=== PATIENT | female | born 1965 | race Asian ===

== ENCOUNTER → 2022-02-20 08:13 | Outpatient (BNVA) | payer OTHER, SELFPAY | PROVIDERS: PCP Family Medicine; Visit Provider Nurse Practitioner Family | DX: G47.00 Insomnia, unspecified (principal); R40.0 Somnolence; R06.83 Snoring | CPT/HCPCS: 99202 ==

== ENCOUNTER → 2022-04-02 15:03 | Outpatient (REF) | payer OTHER, SELFPAY | LOC: HO.SL 15:03 | PROVIDERS: Visit Provider Nurse Practitioner Family | DX: R40.0 Somnolence (principal); R06.83 Snoring | CPT/HCPCS: 95806 ==

== ENCOUNTER → 2022-05-08 10:43 | Outpatient (BNVA) | payer OTHER, SELFPAY | PROVIDERS: PCP Family Medicine; Visit Provider Nurse Practitioner Family | DX: G47.00 Insomnia, unspecified (principal); G57.93 Unspecified mononeuropathy of bilateral lower limbs; Z79.899 Other long term (current) drug therapy | CPT/HCPCS: 99212 ==

== ENCOUNTER → 2022-07-16 11:23 | Outpatient (BNVA) | payer OTHER, SELFPAY | PROVIDERS: PCP Family Medicine; Visit Provider Nurse Practitioner Family | DX: G47.00 Insomnia, unspecified (principal); G57.93 Unspecified mononeuropathy of bilateral lower limbs; R29.2 Abnormal reflex; R32 Unspecified urinary incontinence; M54.9 Dorsalgia, unspecified; Z79.899 Other long term (current) drug therapy | CPT/HCPCS: 99212 ==

== ENCOUNTER 2022-08-07 13:40 | Outpatient (REF) | payer OTHER, SELFPAY ==
--- NOTE | ~2022-08-07 | MR_ITS ---
EXAMINATION: MR LUMBAR SPINE WITHOUT CONTRAST CLINICAL INFORMATION: Unspecified mononeuropathy of bilateral lower limbs. COMPARISON: None TECHNIQUE: MRI of the lumbar spine was obtained using routine sequences without contrast. FINDINGS: There is grade 1 retrolisthesis of L3 on L4 with alignment otherwise preserved. The vertebral body heights are preserved. There is moderate disc height loss at L1-L2, L2-L3, and L3-L4. Edematous endplate changes are noted at L3-L4 and to lesser extent L4-L5. The distal spinal cord appears normal. The conus medullaris terminates normally at the L1-L2 level. A small filar lipoma is noted. The extraspinal soft tissues are within normal limits. SPINAL LEVELS: L1-L2: Shallow left subarticular protrusion. No spinal canal or neural foraminal stenosis. L2-L3: Mild disc bulging. No spinal canal or neural foraminal stenosis. L3-L4: Shallow left subarticular protrusion with moderate facet arthropathy. Mild spinal canal stenosis and left subarticular stenosis. Left foraminal protrusion resulting in severe left neural foraminal stenosis. Mild to moderate right neural foraminal stenosis. L4-L5: Disc bulging with moderate facet arthropathy. Right foraminal protrusion resulting in moderate to severe right neural foraminal stenosis. No spinal canal stenosis. L5-S1: Disc bulging with moderate facet arthropathy. No spinal canal or neural foraminal stenosis. MR/MR lumbar spine wo con IMPRESSION: 1. Multilevel degenerative spondylosis without significant narrowing of the spinal canal. 2. At L3-L4 there is left foraminal protrusion resulting in severe left neural foraminal stenosis. Mild to moderate right neural foraminal stenosis. 3. At L4-L5 there is right foraminal protrusion resulting in moderate to severe right neural foraminal stenosis.
== END 2022-08-07 13:41 | disposition home or self-care (01) ==
LOC: HO.MRI 13:40
PROVIDERS: PCP Family Medicine; Visit Provider Nurse Practitioner Family
DX: G57.93 Unspecified mononeuropathy of bilateral lower limbs (principal); M54.9 Dorsalgia, unspecified; R32 Unspecified urinary incontinence; R29.2 Abnormal reflex
CPT/HCPCS: 72148

== ENCOUNTER 2023-08-18 09:58 | Outpatient (AMB) | payer OTHER, SELFPAY ==
--- NOTE | 2023-08-18 10:12 | MHC.OFFVIS ---
Intake Vital Signs 08/18/23 10:20 Height 5 ft 1 in Weight 144 lb 6 oz BMI 27.3 BP 124/70 Blood Pressure Location Lt brachial Position Sitting Pulse 58 Pulse Source Pulse Oximeter Pulse Oximetry (%) 97 Oxygen Delivery Method Room Air Intake Visit Reasons: Follow up - CONF w/address Intake Note: Patient presents for f/u. wants to refill Gabapentin 100mg and Gabapentin 300mg. Allergies No Known Allergies Allergy (Verified 08/18/23 10:19) HPI HPI Comments History of Present Illness Details 57 y/o female patient presents for follow up of insomnia. Pt's daughter helps for [place] interpretation. Pt reports that she sleeps better with gabapentin 400 mg, trazodone 100-125 mg. She also taking magnesium glycinate 240 mg and it helps her sleep throughout the night. Pt can sleep 6-7 hours well. She does daily gentle exercise and practice sleep hygiene. Bilateral legs tingling, feet and knee pain usually disrupt her sleep. She uses heating pad for knee pain, and back pain, having cortisone shot, doing physical therapy, and they are helpful. Pt reports back pain and left shoulder pain also has improved. Lumbar spine MRI result reviewed. IMPRESSION: 1. Multilevel degenerative spondylosis without significant narrowing of the spinal canal. 2. At L3-L4 there is left foraminal protrusion resulting in severe left neural foraminal stenosis. Mild to moderate right neural foraminal stenosis. 3. At L4-L5 there is right foraminal protrusion resulting in moderate to severe right neural foraminal stenosis. [facility] Surgical History History of removal of tunneled central venous catheter (CVC) with port Family History Family/Other Alzheimer disease Social History Alcohol intake: never Patient Tobacco Use Status: Former Tobacco user Review of Systems Const All systems reviewed & are unremarkable except as noted in HPI and below ENT Reports Normal hearing present Neuro Reports Normal hearing present Physical Exam Vital Signs: Last Vital Signs Pulse 58 08/18/23 10:20 BP 124/70 08/18/23 10:20 Pulse Ox 97 08/18/23 10:20 Oxygen Delivery Method Room Air 08/18/23 10:20 BMI result Body Mass Index 27.3 Const General: cooperative Nutritional Appearance: average body habitus Orientation/consciousness: patient oriented x3 Limitations: language barrier (Af[place] speaking only) Neck Neck: Yes full ROM and Yes supple Resp Effort & Inspection: normal respiratory effort and able to speak in complete sentences Neuro General: patient oriented x3 and gait normal Cranial nerves: Yes Bilaterally intact EOM present, Yes Normal facial strength present, Yes Midline tongue present, Yes Normal hearing present, Yes Ability to bilaterally rotate head present and Yes Ability to bilaterally elevate shoulders present Cognition (Neuro): normal cognition Gait exam (Neuro): Normal gait present Motor exam (neuro): 5/5 motor strength present throughout Deep tendon reflexes (DTR's): Right patellar reflex intensity grade: 3+ and Left patellar reflex intensity grade: 3+ Psych Appearance: grossly normal Mental Status: mental status grossly normal Speech and movement: Normal speech and movement present Affect: normal affect Attitude: cooperative Assessment & Plan Assessment & Plan (1) Insomnia: Code(s): G47.00 - Insomnia, unspecified (2) Neuropathy involving both lower extremities: Code(s): G57.93 - Unspecified mononeuropathy of bilateral lower limbs (3) Abnormal reflexes of lower extremity: Code(s): R29.2 - Abnormal reflex (4) Back pain: Code(s): M54.9 - Dorsalgia, unspecified Plan Advised patient to continue to gabapentin to 400 mg, trazodone 100-125 mg with magneisum glycinate. Continue to practice good sleep hygiene and daily exercise. Continue to do physical threrapy for back pain. Pt to call with any worsening concerns or questions. Medications: Refilled gabapentin 300 mg PO BEDTIME 90 days 90 caps 2RF gabapentin 100 mg PO BEDTIME 90 days 90 caps 2RF Coding Level of Care Code Est Pt Level 4 (08998) Diagnoses Insomnia G47.00 Neuropathy involving both lower extremities G57.93 Abnormal reflexes of lower extremity R29.2 Back pain M54.9
[2023-08-18 10:20] VITALS: BP 124/70; PULSE 58; O2SAT 97; BMI 27.3
== END 2023-08-18 10:39 | disposition home or self-care (01) ==
PROVIDERS: PCP Family Medicine; Visit Provider Nurse Practitioner Family
DX: G47.00 Insomnia, unspecified (principal); G57.93 Unspecified mononeuropathy of bilateral lower limbs; R29.2 Abnormal reflex; M54.9 Dorsalgia, unspecified
CPT/HCPCS: 99214

== ENCOUNTER → 2023-08-18 09:58 | Outpatient (BNVA) | payer OTHER, SELFPAY | PROVIDERS: PCP Family Medicine; Visit Provider Nurse Practitioner Family | DX: G47.00 Insomnia, unspecified (principal); G57.93 Unspecified mononeuropathy of bilateral lower limbs; R29.2 Abnormal reflex; M54.9 Dorsalgia, unspecified | CPT/HCPCS: 99212 ==

== ENCOUNTER 2024-08-02 11:38 | Outpatient (AMB) | payer MEDICAID, SELFPAY ==
--- NOTE | 2024-08-02 11:40 | A.OFFVIS_ITS ---
Vital Signs 08/02/24 11:41 Height 5 ft 1 in Weight 145 lb BMI 27.4 BP 120/68 Blood Pressure Location Rt brachial Position Sitting Pulse 72 Pulse Source Pulse Oximeter Pulse Oximetry (%) 97 Oxygen Delivery Method Room Air Intake Visit Reasons: Follow up Intake Note: Patient following up on Insomnia and Neuropathy involving both lower extremities Allergies No Known Allergies Allergy (Verified 08/02/24 11:43) HPI Comments Details: 58 y/o female patient presents for follow up of insomnia. Patient's daughter interprets in [place]. HST completed in Apr 2022, AHI was <1 and she did not have sleep apnea. MRI Jul 2022 Lumbar Spondolysis, reviewed with patient. Pt reports that she sleeps better with gabapentin 400 mg, and trazodone 150mg po daily at night. She goes to bed midnight and wakes up at 7am with 2-3 bathroom breaks a night. She sleeps 6-7 hours with medication. She does daily gentle exercise and practice sleep hygiene. She has continued bilateral tingling, numbness in the feet and R. knee pain which usually disrupt her sleep. She uses heating pad for knee pain, and back pain, cortisone shots, and doing physical therapy are helpful. She is just had an arthrocentesis of the R. knee and 5ml of yellow tinged fluid was aspirated, which provided some relief, at [facility]. She has incontinence and declines Pelvic floor exercises, continues to take Vibegron 75mg po daily and this helps. [facility] Surgical History History of removal of tunneled central venous catheter (CVC) with port Family History Family/Other Alzheimer disease Social History Alcohol intake: never Patient Tobacco Use Status: Former Tobacco user Review of Systems Const All systems reviewed & are unremarkable except as noted in HPI and below ENT Reports Normal hearing present Neuro Reports Normal hearing present Physical Exam Vital Signs: Last Vital Signs Pulse 72 08/02/24 11:41 BP 120/68 08/02/24 11:41 Pulse Ox 97 08/02/24 11:41 Oxygen Delivery Method Room Air 08/02/24 11:41 BMI result Body Mass Index 27.4 Const General: cooperative Nutritional Appearance: average body habitus Orientation/consciousness: patient oriented x3 Limitations: language barrier ([place] speaking only) Neck Neck: Yes full ROM and Yes supple Resp Effort & Inspection: normal respiratory effort and able to speak in complete sentences Neuro General: patient oriented x3 and gait normal Cranial nerves: Yes Bilaterally intact EOM present, Yes Normal facial strength present, Yes Midline tongue present, Yes Normal hearing present, Yes Ability to bilaterally rotate head present and Yes Ability to bilaterally elevate shoulders present Cognition (Neuro): normal cognition Gait exam (Neuro): Normal gait present Motor exam (neuro): 5/5 motor strength present throughout Deep tendon reflexes (DTR's): Right patellar reflex intensity grade: 3+ and Left patellar reflex intensity grade: 3+ Psych Appearance: grossly normal Mental Status: mental status grossly normal Speech and movement: Normal speech and movement present Affect: normal affect Attitude: cooperative Results Reviewed Results Reviewed: HST completed in Apr 2022, AHI was <1 and she did not have sleep apnea. MRI Jul 2022 Lumbar Spondolysis IMPRESSION: 1. Multilevel degenerative spondylosis without significant narrowing of the spinal canal. 2. At L3-L4 there is left foraminal protrusion resulting in severe left neural foraminal stenosis. Mild to moderate right neural foraminal stenosis. 3. At L4-L5 there is right foraminal protrusion resulting in moderate to severe right neural foraminal stenosis. 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: Code(s): M47.27 - Other spondylosis with radiculopathy, lumbosacral region Category: Medical (2) Insomnia: Code(s): G47.00 - Insomnia, unspecified Category: Medical Qualifiers: Insomnia type: due to medical condition Qualified Code(s): G47.01 - Insomnia due to medical condition (3) Neuropathy involving both lower extremities: Code(s): G57.93 - Unspecified mononeuropathy of bilateral lower limbs Category: Medical (4) Abnormal reflexes of lower extremity: Code(s): R29.2 - Abnormal reflex Category: Medical (5) Back pain: Code(s): M54.9 - Dorsalgia, unspecified Category: Medical Qualifiers: Back pain laterality: bilateral Back pain location: low back pain Chronicity: chronic Sciatica presence: unspecified whether sciatica present Qualified Code(s): M54.50 - Low back pain, unspecified; G89.29 - Other chronic pain Plan Will refer to pain management for Corticosteroid / Hyaluronic injections as needed, spondylosis. Continue to take gabapentin to 400 mg po at bedtime for lumbar radiculopathy. Continue to take Trazadone 150mg po at bedtime for insomnia. Continue to take Magnesium Oxide 400mg po at bedtime for low back pain. F/U in 3 months Pt to call with any worsening concerns or questions. Orders: Referrals Pain Management Referral M47.27 - Other spondylosis with radiculopathy, lumbosacral region Medications: New magnesium oxide Take one 200mg tablet by mouth at bedtime daily. 400 mg PO DAILY 90 tabs 3RF Insomnia 90 days MDD 400mg G47.9 - Sleep disorder, unspecified, R53.83 - Other fatigue Changed From gabapentin 100 mg PO BEDTIME 90 days 90 caps 2RF G57.93 - Unspecified mononeuropathy of bilateral lower limbs To gabapentin Take one capsule by mouth at bedtime daily. 100 mg PO BEDTIME 90 caps 3RF Neuropathy 90 days MDD 100mg G57.93 - Unspecified mononeuropathy of bilateral lower limbs Refilled gabapentin 300 mg PO BEDTIME 90 caps 2RF Neuropathy 90 days MDD 300mg G57.93 - Unspecified mononeuropathy of bilateral lower limbs Patient Instructions: Sleep Hygiene provided, f/u with pain management. Coding Level of Care Code Est Pt Level 4 (23528) Diagnoses Spondylosis of lumbosacral spine at 2 levels with radiculopathy M47.27 Insomnia due to medical condition G47.01 Insomnia type: due to medical condition Neuropathy involving both lower extremities G57.93 Abnormal reflexes of lower extremity R29.2 Chronic bilateral low back pain, unspecified whether sciatica present M54.50; G89.29 Back pain laterality: bilateral Back pain location: low back pain Chronicity: chronic Sciatica presence: unspecified whether sciatica present Time Spent (min) 30 Comment improving
[2024-08-02 11:41] VITALS: BP 120/68; PULSE 72; O2SAT 97; BMI 27.4
--- OUTSIDE RECORDS SUMMARY | 2024-08-02 14:48 | XMS_ITS | Encounter Summary ---
Author Organization [facility] Address [address] [place] [address] Care Team Providers Care Experimental Flight Test Mechanic Name Role Phone Yesenia Miller MD Primary Care Provider Reason for Referral * Orthopedic (Routine) - Authorized Specialty Diagnoses / Procedures Referred By Contac t Referred To Contact Orthopedic Surgery / Orthopaedic Surgery Diagnoses Chronic pain of right knee Procedures L Inj/Asp: R knee Antionette Aguirre MD 175 [place] [address] Phone: tel: fax: Referral ID Status Reason Start Date Expiration Date V isits Requested Visits Authorized [id number] Authorized 07/29/2024 07/29/2025 1 1 Reason for Visit * Reason Comments Consult Right knee pain * Consultation (Routine) - Closed Specialty Diagnoses / Procedures Referred By Contac t Referred To Contact Orthopaedics / Orthopedic Diagnoses Chronic pain of right knee Toni Vieira PA [address] [place] [address] Phone: tel: fax: Antionette Aguirre MD [address] [address] Phone: tel: fax: Referral ID Status Reason Start Date Expiration Date V isits Requested Visits Authorized [id number] Closed Specialty Services Required 05/06/2024 05/06/2025 1 1 Encounter Details Date Type Department Care Team ([facility] st Contact Info) Description 07/29/2024 9:30 AM EST Consult Orthopedic Surgery - [place] [address] [phone] Antionette Aguirre MD [address] [address] Chronic pain of right knee Social History Tobacco Use Types Packs/Day Years Used Date Smoking Tobacco: Former Smokeless Tobacco: Never Alcohol Use Standard Drinks/Week Comments No 0 (1 standard drink = 0.6 oz pur e alcohol) Comments Unknown Sex and Gender Information Value Date Recorded Sex Assigned at Not on file Legal Sex Female 8:11 PM EST Gender Identity Not on file Sexual Orientation Not on file documented as of this encounter Last Filed Vital Signs Vital Sign Reading Time Taken Comments Blood Pressure - - Pulse - - Temperature - - Respiratory Rate - - Oxygen Saturation - - Inhaled Oxygen Concentration - - Weight 66.2 kg (146 lb) 07/29/2024 9:21 AM EST Height 152.4 cm (5') 07/29/2024 9:21 AM EST Body Mass Index 28.51 07/29/2024 9:21 AM EST documented in this encounter Progress Notes * Antionette Aguirre MD - 07/29/2024 9:30 AM ESTAssociated Order(s): L Inj/Asp: R knee Post-Procedure Diagnose(s): Chronic pain of right knee Asmita Young CC: Chief Complaint Patient presents with Consult Right knee pain Patient was seen with her adult daughter who she asked to 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 HPI: This is a 58 y.o. -year-old female referred to the [facility] by Toni Vieira PA for assessment of right knee pain. Mrs. Young had pain in the right knee for several years. She states she had seen a provider in the past and had corticosteroid injections which did provide relief for a time. She states recently she has had increasing sharp pain in the knee as well as a feelingof weakness. She states the knee aches at night especially through the medial aspect of the joint. ROS: Constitutional: no fever Eyes: negative for redness, drainage ENT: negative for ear pain or discharge Cardiovascular: negative for pain Respiratory: no cough GI: no vomiting or diarrhea, stomach ache, change in BMs : normal voiding Musculoskeletal: see HPI Skin: no rash Neurologic: negative for headache, dizziness The remainder of the systems is noncontributory PMH: Patient Active Problem List Diagnosis Date Noted History of endometrial cancer 06/16/2024 Vaginal atrophy 06/16/2024 Hypercholesterolemia 06/16/2024 GERD (gastroesophageal reflux disease) 06/16/2024 Mild intermittent asthma without complication 06/16/2024 Anxiety 07/06/2020 Depression 07/06/2020 PSH: Past Surgical History: Procedure Laterality Date MOUTH SURGERY PROCEDURE: ORAL SURGERY PROCEDURE; COMMENT: implants OTHER SURGICAL HISTORY 03/08/2020 PROCEDURE: VT LAPS TOTAL HYSTERECT 250 GM/< W/RMVL TUBE/OVARY; COMMENT: Robot assisted TLH, BSO OTHER SURGICAL HISTORY 03/08/2020 PROCEDURE: VT LAPS SURG RETROPERITONEAL LYMPH NODE BX 1/VMWARE ADMINISTRATOR; COMMENT: Bilateral sentinel lymph nodebiopsy Medications: Current Outpatient Medications: acetaminophen (TYLENOL) 500 mg tablet, Chew 1 tablet (500 mg total) by mouth every 6 (six) hours asneeded for pain., Disp: , Rfl: albuterol HFA (PROAIR HFA ; PROVENTIL HFA ; VENTOLIN HFA) 90 mcg/actuation inhaler, every 6 (six) hours if needed., Disp: , Rfl: aspirin 81 mg EC tablet, Take 1 tablet (81 mg total) by mouth 1 (one) time each day., Disp: , Rfl: atorvastatin (LIPITOR) 40 mg tablet, Take 1 Tablet by mouth., Disp: , Rfl: cimetidine (TAGAMET) 300 mg tablet, Take 1 tablet (300 mg total) by mouth 1 (one) time each day., Disp: , Rfl: gabapentin (NEURONTIN) 100 mg capsule, Take 1 Capsule by mouth daily. Along with 300mg -total of 400mg daily Per neuro, Disp: , Rfl: hyaluronic acid mary alice (HYALO TESTING SHAKING SHIPPING VAGL), Insert into the vagina., Disp: , Rfl: oxyBUTYnin XL (DITROPAN-XL) 5 mg 24 hr tablet, Take 1 tablet (5 mg total) by mouth 1 (one) time each day., Disp: 90 tablet, Rfl: 1 sucralfate (CARAFATE) 1 gram tablet, Take 1 tablet (1 g total) by mouth 1 (one) time each day., Disp: , Rfl: traZODone (DESYREL) 100 mg tablet, TAKE 1 TABLET BY MOUTH AT BEDTIME. TAKE WITH 50MG TAB TO EQUAL 150MG NIGHTLY, Disp: 90 tablet, Rfl: 0 traZODone (DESYREL) 50 mg tablet, TAKE ONE TAB WITH 100MG TAB TO EQUAL 150MG NIGHTLY, Disp: 90 tablet, Rfl: 0 traZODone (DESYREL) 50 mg tablet, TAKE ONE TAB WITH 100MG TAB TO EQUAL 150MG NIGHTLY, Disp: , Rfl: Allergies: Allergies Allergen Reactions Pollen Extracts SHx: Social History Tobacco Use Smoking status: Former Smokeless tobacco: Never Substance Use Topics Alcohol use: No FHx: Family History Problem Relation Name Age of Onset Other (Other: hyperlipidemia) Sister Other (Other: hyperlipidemia) Sister Liver disease Father Physical Exam: Visit Vitals Ht 1.524 m (60 ) Wt 66.2 kg (146 lb) BMI 28.51 kg/m?? Smoking Status Former BSA 1.63 m?? Gen: No acute distress. Pleasant Eyes: PERRL, EOMI ENT: Mucous membranes moist Resp:Normal respiratory effort Lymphatics: No noted lymphadenopathy MSK: Knee Exam: Right Inspection: No genu varus or valgus noted. 1+ effusion. Normal gait. Palpations: medial and lateraljoint line tenderness to palpation. Patella facets - No tenderness to palpation. MCL: TTP. LCL: nl.Distal ITB: nl. Patella tendon: nl. Pes Anserine: tendons: TTP, bursa: nl. Strength: 5/5. ROM-full.Varus stress at 20 degree and full extension - nl. Valgus stress at at 20 degree and full extension- nl. Special testing: Ant. Drawer - nl. Post. Drawer - nl. Lachmen's - nl. . Post. Sag - nl. Quad.Activation - nl. Sourav's - Pain medially . Patella compression - neg. Patella apprehension - neg. Neurovascular: Sensation to light touch: Intact and symmetric. DTR: Intact and symmetric. Peripheral pulses: Intact and symmetric. Cap. Refill: brisk. Radiographic/Imagin weightbearing views of the right knee were obtained and reviewed. No evidence of fracture or osteochondral lesion noted. Medial and lateral joint spaces are relatively well-maintained with mild spurring at the joint lines. There is lateral patella facet joint spaceloss with spurring. All images are stored and permanently retrievable Assessment: 1) Right knee pain secondary to degenerative change most prominent in the patellofemoral compartment. Given her episodes of sharp pain she likely has degenerative meniscus tearing. I discussed initial conservative treatment with aspiration of the effusion and corticosteroid injection for pain control followed by physical therapy. She states she has done PT in the past with no improvement. She states when she was seen last time gel injections were discussed but she never received these. L Inj/Asp: R knee Indications: pain Details: 22 G needle, superolateral approach Medications: 4 mL lidocaine 1 %; 40 mg triamcinolone acetonide 40 mg/mL Aspirate: 10 mL yellow Outcome: tolerated well, no immediate complications Informed Consent: Laterality: Right Relevant images/test results available and reviewed: yes Health status cleared: Yes Procedure/treatment, purpose, treatment alternatives, risks/potential complications and benefits explained: yes Risk/complications/benefits details: Risks include bleeding, infection, increase in pain, fat pad atrophy Patient questions answered: yes Patient agrees, verbalizes understanding, and wants to proceed: yes Consent given by: Patient Informed consent discussion completed by Physician/CHASTITY with patient: Verbal Pre-procedure timeout performed: yes Plan: 1) Advised to take it easy for the next 24 to 48 hours. 2) May ice and use Tylenol or NSAIDs for postinjection soreness 3) Advised to call the office for any severe increase in pain, redness, swelling or bruising. 4) discussed trial of Euflexxa injections for right knee osteoarthritis. On review of her medical records it appears these were ordered last year but patient was unable unable to be reached by phone.Will reorder these today and contact her when they arrive in the office. Her daughter will double check contact numbers to make sure these are accurate. Significant amount of additional work done in evaluation of this patient including reviewing medical records, obtaining and reviewing x-rays, discussing diagnosis and performing aspiration and corticosteroid injection of the right knee. All of the patient's questions were answered. The patient understand and feels comfortable with thecurrent care plan. Thanks for allowing me to be a part of the patient's care team! Please feel free to contact me for any reason. Sincerely, Antionette Aguirre MD. ON 07/29/2024 at 1:50 PM EST documented in this encounter Plan of Treatment Upcoming Encounters Date Type Department Care Team (Late st Contact Info) Description 09/02/2024 8:00 AM EDT Procedure visit Orthopedic Surgery [facility] [address] [phone] Antionette Aguirre MD [address] [address] 09/09/2024 8:30 AM EDT Procedure visit Orthopedic Surgery [facility] [address] [phone] Antionette Aguirre MD 175 [facility] [address] [place] [address] 09/16/2024 8:30 AM EDT Procedure visit Orthopedic [facility] [address] [phone] Antionette Aguirre MD [address] [address] 10/14/2024 8:00 AM EDT Appointment [facility] Endoscopy [address] [place] [phone] Eros Luevano DO 175 [facility] 200 [place] [address] 11/11/2024 12:00 PM EDT Office Visit [facility] [address] [phone] Toni Vieira PA [address] [place] [address] 12/15/2024 8:40 AM EDT Office Visit [facility] 271 [facility] [address] [place] [phone] Emely Kitchen MD 271 [facility] 110 [place] [address] 12/23/2024 11:30 AM EDT Office Visit [facility] Hematology Oncology [address] [place] [address] Blossom Iqbal DO [address] [place] [address] documented as of this encounter Procedures Procedure Name Priority Date/Time Associated Diagnosis Comments VT ARTHROCENTESIS/ASPI RATION/INJECTION MAJOR JOINT/BURSA W/O U/S GUIDANCE Routine 07/29/2024 9:30 AM EST Chronic pain of right knee documented in this encounter Results * XR Knee 3 Views Right (07/29/2024 9:41 AM EST) Anatomical Region Laterality Modality Lower Extremities, Knee Right Computed Radiography 08/01/2024 1:51 PM EST Impressions 08/01/2024 1:56 PM EST Mild degenerative changes. ??Very small joint effusion. ??Possible tiny intra-articular body. POS - [id number] -------- FINAL REPORT -------- Dictated By: Megan Nagy Dictated Date: 08/01/2024 13:51 ET Assigned Physician: Megan Nagy Reviewed and Electronically Signed By: Megan Nagy Signed Date: 08/01/2024 13:56 ET Workstation ID: [id number] Transcribed By: Self Edit Transcribed Date: 08/01/2024 13:51 ET Narrative 08/01/2024 1:56 PM EST EXAM: Right knee x-ray HISTORY: Chronic right knee pain. COMPARISON: 09/05/2022 VIEWS: ??3 views performed, PA view performed weightbearing. FINDINGS: Mild joint space narrowing at the lateral patellofemoral joint. ??Tricompartment spurring. ??Small superior patellar spur at the quadriceps attachment from enthesopathy. ??No evidence of an acute fracture or malalignment. ??No destructive bone lesion. ??Very small joint effusion. ??Tiny radiodensity superimposes the posterior intercondylar notch concerning for an intra-articular body. Procedure Note Megan Nagy MD - 08/01/2024 EXAM: Right knee x-ray HISTORY: Chronic right knee pain. COMPARISON: 09/05/2022 VIEWS: 3 views performed, PA view performed weightbearing. FINDINGS: Mild joint space narrowing at the lateral patellofemoral joint.Tricompartment spurring. Small superior patellar spur at the quadricepsattachment from enthesopathy. No evidence of an acute fracture ormalalignment. No destructive bone lesion. Very small joint effusion.Tiny radiodensity superimposes the posterior intercondylar notchconcerning for an intra-articular body. IMPRESSION: Mild degenerative changes. Very small joint effusion. Possible tinyintra- articular body. POS - [id number] -------- FINAL REPORT -------- Dictated By: Megan Nagy Dictated Date: 08/01/2024 13:51 ET Assigned Physician: Megan Nagy Reviewed and Electronically Signed By: Megan Nagy Signed Date: 08/01/2024 13:56 ET Workstation ID: [id number] Transcribed By: Self Edit Transcribed Date: 08/01/2024 13:51 ET us Antionette Aguirre MD IMG XR PROCEDURES Final Result * VT ARTHROCENTESIS/ASPIRATION/INJECTION MAJOR JOINT/BURSA W/O U/S GUIDANCE (07/29/2024 9:30 AM EST) Narrative Antionette Aguirre MD - 07/29/2024 9:30 AM EST Antionette Aguirre MD ? 07/29/2024 ??2:06 PM L Inj/Asp: R knee Indications: pain Details: 22 G needle, superolateral approach Medications: 4 mL lidocaine 1 %; 40 mg triamcinolone acetonide 40 mg/mL Aspirate: 10 mL yellow Outcome: tolerated well, no immediate complications Informed Consent: ??Laterality: ??Right ??Relevant images/test results available and reviewed: yes ?Health status cleared: ??Yes ??Procedure/treatment, purpose, treatment alternatives, risks/potential complications and benefits explained: yes ?Risk/complications/benefits details: ??Risks include bleeding, infection, increase in pain, fat pad atrophy ??Patient questions answered: yes ?Patient agrees, verbalizes understanding, and wants to proceed: yes ?Consent given by: ??Patient ??Informed consent discussion completed by Physician/CHASTITY with patient: ?? Verbal ??Pre-procedure timeout performed: yes ?? us Antionette Aguirre MD IN CLINIC/BEDSIDE ORDERABLES F inal Result documented in this encounter Visit Diagnoses Diagnosis Chronic pain of right knee documented in this encounter Administered Medications Inactive Administered Medications - up to 3 most recent administrations Medication Order MAR Action Action Date Dose Rate Site lidocaine (XYLOCAINE) 1 % injection 4 mL 4 mL, injection, Once PRN Procedure, Starting on Thu07/29/24 at 0930, For 1 doseIndications:Chronic pain of right knee Given 07/29/2024 9:30 AM EST 4 mL triamcinolone acetonide (KENALOG-40) 40 mg/mL injection 40 mg 40 mg, intra-articular, Once PRN Procedure, Starting on Thu07/29/24 at 0930, For 1 doseIndications:Chronic pain of right knee Given 07/29/2024 9:30 AM EST 40 mg documented in this encounter Orders Outpatient Referral Count Last Ordered Date Fir st Ordered Date AMB REFERRAL TO ORTHOPEDIC 1 07/29/2024 documented in this encounter Care Teams Experimental Flight Test Mechanic Relationship Specialty Start Date End Date Yesenia Miller MD [address] [facility] [address] [place] [address] PCP - General Internal Medicine 01/15/22 documented as of this encounter
--- OUTSIDE RECORDS SUMMARY | 2024-08-02 14:48 | XMS_ITS | Encounter Summary ---
Author Organization [facility] Address [address] [place] [address] Care Team Providers Care Clinical Cytogeneticist Name Role Phone Yesenia Miller MD Primary Care Provider Encounter Details Date Type Department Care Team (Late st Contact Info) Description 08/02/2024 Telephone Orthopedic Surgery - [place] [address] [phone] Carrie Almendarez MA Social History Tobacco Use Types Packs/Day Years [...] on file documented as of this encounter Progress Notes * Carrie Almendarez MA - 08/02/2024 1:25 PM EST Benefit investigation from euflexxa was received on 08/01/24 member is not covered for the injections through their pharmacy benefits . FREDDY [facility]ed to [facility]. After verifying information with Daysi TOMPKINS, what this means is that we just have to do a buy and bill. No extra steps need to be taken. Patient daughter was called and informed, appts were scheduled. documented in this encounter Plan of Treatment Upcoming Encounters Date Type Department Care Team ([facility] st Contact Info) Description 09/02/2024 8:00 AM EDT Procedure visit Orthopedic Surgery [facility] [address] [phone] Antionette Aguirre MD [address] [address] 09/09/2024 8:30 AM EDT Procedure visit Orthopedic Surgery [facility] [address] [phone] Antionette Aguirre MD [address] [address] 09/16/2024 8:30 AM EDT Procedure visit Orthopedic Surgery [facility] [address] [phone] Antionette Aguirre MD [address] [address] 10/14/2024 8:[address] [facility] Endoscopy [address] [place] [phone] Eros Luevano DO [address] [address] 11/11/2024 12:00 PM EDT Office Visit Adult Medicine - [address] [phone] Toni Vieira, FREDDY [address] [place] [address] 12/15/2024 8:40 AM EDT Office Visit Breast [facility] [address] [phone] Emely Kitchen MD 271 [facility] 110 [place] [address] 12/23/2024 11:30 AM EDT Office Visit [facility] Hematology Oncology [address] [place] [phone] Blossom Iqbal DO [address] [place] [address] documented as of this encounter Visit Diagnoses Not on filedocumented in this encounter Care Teams Clinical Cytogeneticist Relationship Specialty Start Date End Date Yesenia Miller MD [address] [place] [address] PCP - General Internal Medicine 01/15/22 documented as of this encounter
--- OUTSIDE RECORDS SUMMARY | 2024-08-02 14:48 | XMS_ITS | Clinical Summary ---
Author Organization [facility] Address [address] [place] [address] Phone Care Team Providers Care Enrollment Specialist Name Role Phone Yesenia Miller MD Primary Care Provider Allergies Active Allergy Reactions Criticality Noted Date Comments Pollen Extracts 10/30/2023 Medications acetaminophen (TYLENOL) 500 mg tablet Chew 1 tablet (500 mg total) by mouth every 6 (six) hours as needed for pain. Active atorvastatin (LIPITOR) 40 mg tablet Take 1 Tablet by mouth. 4 Active gabapentin (NEURONTIN) 100 mg capsule Take 1 Capsule by mouth daily. Along with 300mg -total of 400mg daily Per neuro 2 Active sucralfate (CARAFATE) 1 gram tablet Take 1 tablet (1 g total) by mouth 1 (one) time each day. Active cimetidine (TAGAMET) 300 mg tablet Take 1 tablet (300 mg total) by mouth 1 (one) time each day. Active albuterol HFA (PROAIR HFA ; PROVENTIL HFA ; VENTOLIN HFA) 90 mcg/actuation inhaler every 6 (six) hours if needed. 4 Active aspirin 81 mg EC tablet Take 1 tablet (81 mg total) by mouth 1 (one) time each day. Active traZODone (DESYREL) 100 mg tabletIndicatio ns:Psychophysio logic insomnia TAKE 1 TABLET BY MOUTH AT BEDTIME. TAKE WITH 50MG TAB TO EQUAL 150MG NIGHTLY 90 tablet 5 Active hyaluronic acid mary alice (HYALO ROLLED GLASS CROSSCUTTER VAGL) Insert into the vagina. Active oxyBUTYnin XL (DITROPAN-XL) 5 mg 24 hr tabletIndicatio ns:Urinary incontinence, unspecified type Take 1 tablet (5 mg total) by mouth 1 (one) time each day. 90 tablet 1 5 Active traZODone (DESYREL) 50 mg tabletIndicatio ns:Other insomnia TAKE ONE TAB WITH 100MG TAB TO EQUAL 150MG NIGHTLY 90 tablet 5 Active traZODone (DESYREL) 50 mg tablet TAKE ONE TAB WITH 100MG TAB TO EQUAL 150MG NIGHTLY Active vibegron (Gemtesa) 75 mg tablet tabletIndicatio ns:Urinary incontinence, unspecified type Take 1 tablet (75 mg total) by mouth 1 (one) time each day. 30 tablet 2 4 025 Discontinued Hospital, Clinic, or Other Facility Administered Medication Ordered Dose Route Frequency Start Date End Date Status lidocaine (XYLOCAINE) 1 % injection 4 mLIndications:Chroni c pain of right knee 4 mL inj Once PRN Procedure 07/29/2024 07/29/2024 Ended triamcinolone acetonide (KENALOG-40) 40 mg/mL injection 40 mgIndications:Chroni c pain of right knee 40 mg IAtc Once PRN Procedure 07/29/2024 07/29/2024 Ended Active Problems Problem Noted Date Diagnosed Date History of endometrial cancer 06/16/2024 Overview (06/16/2024): DIAGNOSIS: Endometrioid adenocarcinoma of the endometrium, grade 3, FIGO stage IB, pT1b pN0(i+)(sn) TREATMENT HISTORY: 1. EMB 02/23/20: Endometrioid adenocarcinoma, grade 3 2. Robot assisted total laparoscopic hysterectomy, bilateral salpingo- oophorectomy, sentinel lymph node biopsies on 03/08/20 A. Endometrioid adenocarcinoma of the endometrium, FIGO grade 3 B. 70% myometrial invasion C. 4 out of 6 sentinel lymph nodes with isolated tumor cells D. MMR proteins preserved, p53 negative, p16 positive in poorly differentiated carcinoma component, ER negative in poorly differentiated carcinoma component. E. FIGO stage IB, pT1b pN0(i+)(sn), High risk. 3. Carboplatin AUC 6, paclitaxel 175 mg/m?? every 21 days x 6 cycles from 04/04/2020 to 07/18/20. 4. Whole pelvic radiation therapy with Dr. Richard Vazquez at [facility], completed 09/26/2020 Vaginal atrophy 06/16/2024 Hypercholesterolemia 06/16/2024 GERD (gastroesophageal reflux disease) Mild intermittent asthma without complication Anxiety 07/06/2020 Depression 07/06/2020 Encounters Date Type Department Care Team Description 08/02/2024 Telephone Orthopedic Surgery [facility] [address] [facility] [address] [place] [address] 07/29/2024 9:30 AM EST Consult Orthopedic Surgery [facility] 160 175 [facility] 160 [place] [phone] Antionette Aguirre MD Chronic pain of right knee 07/29/2024 Telephone Orthopedic Surgery [facility] 160 175 [facility] 160 [place] [phone] Antionette Aguirre MD 06/24/2024 11:30 AM EST Office Visit [facility] Hematology Oncology [address] [place] [address] Blossom Iqbal DO History of endometrial cancer (Primary Dx) 06/16/2024 8:20 AM EST Office Visit Breast Care [facility] [address] [facility] 200 [place] [address] Emely Kitchen MD History of endometrial cancer (Primary Dx); Vaginal discharge 05/06/2024 12:30 PM EST Office Visit [address] [phone] Toni Vieira, [place] History of endometrial cancer (Primary Dx); Gastroesophageal reflux disease without esophagitis; Hyperlipidemia, unspecified hyperlipidemia type; Urinary incontinence, unspecified type; Chronic pain of right knee; Screen for colon cancer; Dyspnea on exertion from Last 3 Months Surgical History Surgery Date Site/Laterality Comments MOUTH SURGERY PROCEDURE: ORAL SURGERY PROCEDURE; COMMENT: implants OTHER SURGICAL HISTORY 03/08/2020 PROCEDURE: HI LAPS TOTAL HYSTERECT 250 GM/< W/RMVL TUBE/OVARY; COMMENT: Robot assisted TLH, BSO OTHER SURGICAL HISTORY 03/08/2020 PROCEDURE: HI LAPS SURG RETROPERITONEAL LYMPH NODE BX 1/MANAGER FINE DINING; COMMENT: Bilateral sentinel lymph node biopsy Medical History Medical History Date Comments 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:Neuropathy due to chemotherapeutic drug (HCC) Mild intermittent asthma wit hout complication 06/16/2024 GERD (gastroesophageal reflux disease) Hypercholesterolemia 06/16/2024 Anxiety 07/06/2020 Depression 07/06/2020 History of endometrial cancer 06/16/2024 Family History Medical History Relation Name Comments Liver disease Father Other: hyperlipidemia Sister 1 Other: hyperlipidemia Sister 2 Relation Name Status Comments Brother 1 Alive Brother 2 Alive Brother 3 Alive Brother 4 at Father Mother Sister 1 Alive Sister 2 Alive Sister 3 Alive Sister 4 Alive Sister 5 Alive Sister 6 Alive Sister 7 Alive Social History Tobacco Use Types Packs/Day Years Used Date Smoking Tobacco: Former Smokeless Tobacco: Never Alcohol Use Standard Drinks/Week Comments No 0 (1 standard drink = 0.6 oz pur e alcohol) Comments Unknown Sex and Gender Information Value Date Recorded Sex Assigned at Not on file Legal Sex Female 8:11 PM EST Gender Identity Not on file Sexual Orientation Not on file Obstetrics History Last Filed Vital Signs Vital Sign Reading Time Taken Comments Blood Pressure 117/82 06/24/2024 11:35 AM EST Pulse 75 06/24/2024 11:35 AM EST Temperature 36.9 ??C (98.5 ??F) 06/24/2024 11:[address] Respiratory Rate - - Oxygen Saturation 100% 06/24/2024 11:35 AM EST Inhaled Oxygen Concentration - - Weight 66.2 kg (146 lb) 07/29/2024 9:21 AM EST Height 152.4 cm (5') 07/29/2024 9:21 AM EST Body Mass Index 28.51 07/29/2024 9:21 AM EST Plan of Treatment Upcoming Encounters Date Type Department Care Team (Late st Contact Info) Description 09/02/2024 8:00 AM EDT Procedure visit Orthopedic Surgery [facility] 160 [address] [facility] 160 [place] [phone] Antionette Aguirre MD 175 [facility] 160 [place] [address] 09/09/2024 8:30 AM EDT Procedure visit Orthopedic Surgery [facility] [address] [phone] Antionette Aguirre MD [address] [address] 09/16/2024 8:30 AM EDT Procedure visit Orthopedic Surgery [facility] [address] [phone] Antionette Aguirre MD [address] [address] 10/14/2024 8:[address] [facility] Endoscopy [address] [place] [address] Eros Luevano DO 175 [facility] 200 [place] [address] 11/11/2024 12:00 PM EDT Office Visit Adult Medicine - [place] [address] [place] [address] Toni Vieira, FREDDY [address] [place] [address] 12/15/2024 8:40 AM EDT Office Visit [facility] Care Center [facility] 271 [facility] 200 [place] [phone] Emely Kitchen MD 271 [facility] 110 [place] [address] 12/23/2024 11:30 AM EDT Office Visit [facility] Hematology Oncology [address] [place] [phone] Blossom Iqbal, DO [address] [place] [address] Health Maintenance Due Date Last Done Comments Breast Cancer Screening 1965 DTaP,Tdap,and Td Vaccines (1 - Tdap) 1984 Hepatitis B Vaccines (1 of 3 - 19+ 3-dose series) 1984 Pneumococcal Vaccine: 50+ Years (1 of 2 - PCV) 1984 Pneumococcal Vaccine: Pediatrics (0 to 5 Years) and At-Risk Patients (6 to 64 Years) (1 of 2 - PCV) 1984 Zoster Vaccines (1 of 2) 1984 Cervical Cancer Screening: Pap Smear 1986 Colorectal Cancer Screening: Colonoscopy 05/10/2022 Depression Screening 05/10/2022 HIV Screening 05/10/2022 Hepatitis C Screening 05/10/2022 Medicare Annual Wellness Visit 05/10/2022 Social Influencers of Health Screening 05/10/2022 Cholesterol Screening (Lipid Panel) 05/06/2029 05/06/2024 Influenza Vaccine Completed 03/17/2024, , 03/07/2022, Additional history exists COVID-19 Vaccine Completed 03/18/2024, , 12/20/2021, Additional history exists HIB Vaccines Aged Out No longer eligi ble based on patient's age to complete this topic HPV Vaccines Aged Out No longer eligi ble based on patient's age to complete this topic Hepatitis A Vaccines Aged Out No long er eligible based on patient's age to complete this topic IPV Vaccines Aged Out No longer eligi ble based on patient's age to complete this topic MMR Vaccines Aged Out No longer eligi ble based on patient's age to complete this topic Meningococcal ACWY Vaccine Aged Out N o longer eligible based on patient's age to complete this topic Meningococcal B Vacine Aged Out No lo nger eligible based on patient's age to complete this topic RSV Immunization Patients Under 20 months Aged Out No longer eligible based on patient's age to complete this topic Varicella Vaccines Aged Out No longer eligible based on patient's age to complete this topic Procedures Procedure Name Priority Date/Time Associated Diagnosis Comments XR KNEE 3 VIEWS RIGHT Routine 07/29/2024 9:41 AM EST Chronic pain of right knee HI ARTHROCENTESIS/ASPIRA TION/INJECTION MAJOR JOINT/BURSA W/O U/S GUIDANCE Routine 07/29/2024 9:30 AM EST Chronic pain of right knee VAGINITIS PATHOGENS BY PCR Routine 06/16/2024 9:08 AM EST Vaginal discharge LIPID PANEL WITH REFLEX TO DIRECT LDL Routine 05/06/2024 12:51 PM EST Hyperlipidemia, unspecified hyperlipidemia type COMPREHENSIVE METABOLIC PANEL Routine 05/06/2024 12:51 PM EST Hyperlipidemia, unspecified hyperlipidemia type from Last 3 Months Results * XR Knee 3 Views Right (07/29/2024 9:41 AM EST) Anatomical Region Laterality Modality Lower Extremities, Knee Right Computed Radiography 08/01/2024 1:51 PM EST Impressions 08/01/2024 1:56 PM EST Mild degenerative changes. ??Very small joint effusion. ??Possible tiny intra-articular body. POS - [id number] -------- FINAL REPORT -------- Dictated By: Megan Nagy Dictated Date: 08/01/2024 13:51 ET Assigned Physician: Megan Nagy Reviewed and Electronically Signed By: Megan Nagy Signed Date: 08/01/2024 13:56 ET Workstation ID: [id number] Transcribed By: Self Edit Transcribed Date: 08/01/2024 [...] effusion. Possible tinyintra- articular body. POS - [id number] -------- FINAL REPORT -------- Dictated By: Megan Nagy Dictated Date: 08/01/2024 13:51 ET Assigned Physician: Megan Nagy Reviewed and Electronically Signed By: Megan Nagy Signed Date: 08/01/2024 13:56 ET Workstation ID: [id number] Transcribed By: Self Edit Transcribed Date: 08/01/2024 13:51 ET us Antionette Aguirre MD IMG XR PROCEDURES Final Result * HI ARTHROCENTESIS/ASPIRATION/INJECTION MAJOR JOINT/BURSA W/O U/S GUIDANCE (07/29/2024 [...] MD IN CLINIC/BEDSIDE ORDERABLES F inal Result * Vaginitis pathogens molecular study (06/16/2024 9:08 AM EST) Pathologist [facility] [place] Trichomonas vaginalis Negative Negative 06/17/2024 2:20 PM EST [facility] Gardnerella vaginalis Negative Negative 06/17/2024 2:20 PM EST [facility] Pham Species Negative Negative 2:20 PM EST [facility] Swab Vaginal structure / Unknown Non-blood Collection / Unknown 06/16/2024 9:08 AM EST 06/16/2024 3:58 PM EST Emely Kitchen MD LAB MICROBIOLOGY - GENERAL ORDER RUPALI Final Result [facility] [address] [place] [address], [place] [phone] * (ABNORMAL) Lipid panel with reflex to direct LDL (05/06/2024 12:51 PM EST) Pathologist [facility] [place] Cholesterol 221(H) 0 - 200 mg/dL LAB CHEMISTRY METHOD 05/06/2024 4:32 PM EST [facility] Triglycerides 285(H) 0 - 150 mg/dL LAB CHEMISTRY METHOD 05/06/2024 4:32 PM EST [facility] HDL 69 >=40 mg/dL LAB CHEMISTRY METHOD 05/06/2024 4:32 PM [facility] LDL Calculated 95 0 - 100 mg/dL LAB CHEMISTRY METHOD 05/06/2024 4:32 PM [facility] VLDL Cholesterol Bassem 57 mg/dL LAB CHEMISTRY METHOD 05/06/2024 4:32 PM [facility] Non HDL Chol. (LDL+VLDL) 152(H) <145 mg/dL LAB CHEMISTRY METHOD 05/06/2024 4:32 PM [facility] Chol/HDL Ratio 3.2 0.0 - 4.4 LAB CHEMISTRY METHOD 05/06/2024 4:32 PM [facility] Blood Venous blood specimen / Unknown Venipuncture / Unknown 05/06/2024 12:51 PM EST 05/06/2024 12:51 PM EST Toni HAYES LAB BLOOD ORDERABLES Final Re sult [facility] [address] [place] [address], * (ABNORMAL) Comprehensive metabolic panel (05/06/2024 12:51 PM EST) Sodium 139 133 - 145 mmol/L LAB CHEMISTRY METHOD 05/06/2024 4:32 PM [facility] Potassium 3.7 3.5 - 5.5 mmol/L LAB CHEMISTRY METHOD 05/06/2024 4:32 PM [facility] Chloride 105 96 - 110 mmol/L LAB CHEMISTRY METHOD 05/06/2024 4:32 PM [facility] CO2 28 21 - 32 mmol/L LAB CHEMISTRY METHOD 05/06/2024 4:32 PM [facility] Anion Gap 6 3 - 11 LAB CHEMISTRY METHOD 05/06/2024 4:32 PM [facility] Glucose 108(H) 70 - 100 mg/dL LAB CHEMISTRY METHOD 05/06/2024 4:32 PM [facility] BUN 16 5 - 25 mg/dL LAB CHEMISTRY METHOD 05/06/2024 4:32 PM [facility] Creatinine 0.70 0.50 - 1.10 mg/dL LAB CHEMISTRY METHOD 05/06/2024 4:32 PM [facility] eGFR 100 >=60 mL/min/1. 73m2 LAB CHEMISTRY METHOD 05/06/2024 4:32 PM [facility] Comment:Calculation based on the??Chronic Kidney Disease Epidemiology Collaboration (CKD-EPI) equation refit??without adjustment for race. BUN/Creatinine Ratio 22.9 LAB CHEMISTRY METHOD 05/06/2024 4:32 PM [facility] Calcium 9.3 8.5 - 10.5 mg/dL LAB CHEMISTRY METHOD 05/06/2024 4:32 PM [facility] AST (SGOT) 22 10 - 42 unit/L LAB CHEMISTRY METHOD 05/06/2024 4:32 PM [facility] ALT (SGPT) 30 10 - 60 unit/L LAB CHEMISTRY METHOD 05/06/2024 4:32 PM [facility] Alkaline Phosphatase 82 42 - 121 unit/L LAB CHEMISTRY METHOD 05/06/2024 4:32 PM [facility] Total Protein 7.6 6.0 - 8.0 g/dL LAB CHEMISTRY METHOD 05/06/2024 4:32 PM [facility] Albumin 3.8 3.2 - 5.0 g/dL LAB CHEMISTRY METHOD 05/06/2024 4:32 PM [facility] Total Bilirubin 0.4 0.0 - 1.4 mg/dL LAB CHEMISTRY METHOD 05/06/2024 4:32 PM [facility] Blood Venous blood specimen / Unknown Venipuncture / Unknown 05/06/2024 12:51 PM EST 05/06/2024 12:51 PM EST us Toni HAYES LAB BLOOD ORDERABLES Final Re sult [facility] [address] [place] [address], [place] [phone] from Last 3 Months Insurance MEDICAID - [place] MEDICARE Care Teams Enrollment Specialist Relationship Specialty Start Date End Date Yesenia Miller MD [address] [place] [id number] PCP - General Internal Medicine 01/15/22
--- OUTSIDE RECORDS SUMMARY | 2024-08-02 14:48 | XMS_ITS | Patient Health Record ---
Author Organization [facility] Address [address] [place] [address] Care Team Providers Care Wet Roaster Name Role Phone CLEMENTE TORRES Unavailable [phone] Reason For Referral No Information Social History Tobacco Use: Social History Observation Description Date Details (start date - stop date) Former Smoker NA - NA Tobacco Use/Smoking Question Answer Notes Are you a former smoker How long has it been since you last smoked? 1-5 years Alcohol Screen (Audit-C) Question Answer Notes Did you have a drink containing alcohol in the p ast year? No Points 0 Interpretation Negative Problems Problem Type SNOMED Code ICD Code Onset Dates Problem Status W/U Status Risk Notes Problem Postmenopausal bleeding (08619451) Postmenopausal bleeding (N95.0) Active confirmed Problem Malignant neoplasm of corpus uteri, excluding isthmus (392598229) Malignant neoplasm of endometrium (C54.1) Active confirmed Problem Abnormal uterine bleeding (96416972374243) Abnormal uterine and vaginal bleeding, unspecified (N93.9) Active confirmed Plan Of Treatment Pending Test Test Name Order Date Urinalysis 02/23/2020 ULTRASOUND: PELVIC W/TRANSVAGINAL 2018 MM Digital Screening Mammogram 3D 2019 Insurance Providers Payer Name Payer Address Payer Phone Subscriber Number Group Number Insured Name Patient Relationship to Insured Coverage Start Date Coverage End Date [employer] [place] [address] [place] [address] [id number] TERESA BAKER Self - patient is the insured Medical (General) History Surgical History Surgery Date(Month/Year) oral surgery 08/2018 Hospitalization History Reason Date(Month/Year) childbirth
--- OUTSIDE RECORDS SUMMARY | 2024-08-02 14:48 | XMS_ITS | Encounter Summary ---
Author Organization [facility] Address [address] [place] [address] Care Team Providers Care Manager Of Software Name Role Phone Yesenia Miller MD Primary Care Provider Encounter Details Date Type Department Care Team ([facility] st Contact Info) Description 07/29/2024 Telephone Orthopedic Surgery - [place] [address] [phone] Antionette Aguirre MD [address] [address] Social History Tobacco Use Types Packs/Day Years [...] as of this encounter Progress Notes * Alexandra Booth - 07/29/2024 10:18 AM EST Please use the [phone] 1st but also call the [phone] to leave the message when inj come in documented in this encounter Plan of Treatment Upcoming Encounters Date Type Department Care Team (Late st Contact Info) Description 09/02/2024 8:00 AM EDT Procedure visit Orthopedic Surgery [facility] 160 175 [facility] 160 [place] [phone] Antionette Aguirre MD 175 [facility] 160 [place] [address] 09/09/2024 8:30 AM EDT Procedure visit Orthopedic Surgery [facility] [address] [phone] Antionette Aguirre MD [address] [address] 09/16/2024 8:30 AM EDT Procedure visit Orthopedic Surgery [facility] 160 175 [facility] 160 [place] [phone] Antionette Aguirre MD [address] [address] 10/14/2024 8:00 AM EDT Appointment [facility] Endoscopy [address] [place] [phone] Eros Luevano DO 175 [facility] 200 [place] [address] 11/11/2024 12:00 PM EDT Office Visit Adult Medicine - [place] [address] [place] [phone] Toni Vieira, [place] [address] [place] [address] 12/15/2024 8:40 AM EDT Office Visit [facility] Center - [place] 271 [facility] 200 [place] [phone] Emely Kitchen MD 271 [facility] 110 [place] [address] 12/23/2024 11:30 AM EDT Office Visit [facility] Hematology Oncology [address] [place] [phone] Blossom Iqbal DO [address] [place] [address] documented as of this encounter Visit Diagnoses Not on filedocumented in this encounter Care Teams Manager Of Software Relationship Specialty Start Date End Date Yesenia Miller MD 101 [facility] [address] [place] [address] PCP - General Internal Medicine 01/15/22 documented as of this encounter
--- OUTSIDE RECORDS SUMMARY | 2024-08-02 14:48 | XMS_ITS | Clinical Summary ---
Author Organization [facility] Address [address] [place] [address] Care Team Providers Care Yardmaster Name Role Phone Yesenia Miller MD Primary Care Provider Allergies No known active allergies Medications Medication Sig Dispensed Refills Start Date End Date Status naproxen sodium (ALEVE) 220 MG tablet Take 1 tablet (220 mg total) by mouth 2 (two) times a day with meals. 0 Active acetaminophen (TYLENOL) 500 MG chewable tablet Chew 1 tablet (500 mg total) by mouth every 6 (six) hours as needed for pain. 0 Active Multiple Vitamin (Multivitamin Adult) TABS Take 1 tablet by mouth daily. 30 tablet 5 11/01/2020 Active gabapentin (NEURONTIN) 100 MG capsule Take 1 capsule (100 mg total) by mouth every night at bedtime. 90 capsule 0 02/05/2022 Active Additional Information Patient taking differently: 400 mgOral Every Night at Bedtime, Reported on 08/06/2022 MAGNESIUM GLYCINATE PO Take by mouth. 0 Active Mirabegron ER (Myrbetriq) 50 MG TB24 Take by mouth. 0 Active atorvastatin (LIPITOR) tablet 40 mg Take 1 tablet (40 mg total) by mouth daily. 0 Active Active Problems Problem Noted Date Diagnosed Date Depression 07/06/2020 Anxiety 07/06/2020 Endometrial carcinoma 03/21/2020 Endometrial cancer 02/29/2020 Overview: Overview: 1. EMB 02/23/20: Endometrioid adenocarcinoma, grade 3 2. Robot TLH, BSO, SNB 03/08/20: Endometrioid adenocarcinoma of the endometrium, FIGO grade 3, 70% MM invasion, 4 out of 6 sentinel lymph nodes with isolated tumor cells, MMR proteins preserved, p53 negative, p16 positive and poorly differentiated carcinoma component, ER negative and poorly differentiated carcinoma component.pT1b pN0(i+)(sn), FIGO IB, High risk. 3. Carboplatin AUC 6, paclitaxel 175 mg/m?? every 21 days, started 04/04/2020. Family History Relation Name Status Comments Father Mother Social History Tobacco Use Types Packs/Day Years Used Date Smoking Tobacco: Former Cigarettes 0.3 7 Q uit: 2007 Smokeless Tobacco: Never Alcohol Use Standard Drinks/Week Comments No 0 (1 standard drink = 0.6 oz pur e alcohol) Sex and Gender Information Value Date Recorded Sex Assigned at Not on file Gender Identity Not on file Sexual Orientation Not on file Job Start Date Occupation Industry Not on file Not on file Not on file Last Filed Vital Signs Vital Sign Reading Time Taken Comments Blood Pressure 106/71 12/24/2023 11:41 AM EDT Pulse 61 12/24/2023 11:41 AM EDT Temperature 36.8 ??C (98.2 ??F) 12/24/2023 11:41 AM E DT Respiratory Rate - - Oxygen Saturation 97% 12/24/2023 11:41 AM EDT Inhaled Oxygen Concentration - - Weight 64 kg (141 lb) 12/24/2023 11:41 AM EDT Height 154.9 cm (5' 1 ) 12/24/2023 11:41 AM EDT Body Mass Index 26.64 12/24/2023 11:41 AM EDT Plan of Treatment Health Maintenance Due Date Last Done Comments Hepatitis B Vaccines (1 of 3 - 3-dose series) 1965 Hepatitis C Screening 1965 Pneumococcal Vaccine (1 of 2 - PCV) 08/25/1971 Depression Screening 1977 BMI Counseling 08/25/1983 Preventative Health Evaluation 08/25/1983 DTap / Tdap / Td (1 - Tdap) 1984 Shingrix-Zoster Vaccine (1 of 2) 1984 Cervical Cancer Screening (Pap Smear) 1986 Colon Cancer Screening (Colonoscopy) 2010 Breast Cancer Screening (Mammogram) 08/25/2015 COVID-19 Vaccine ( season) 2024 12/20/2021, 04/06/2021, 03/09/2021 Influenza Vaccine (#1) 2024 2, 02/23/2021, 01/24/2020, Additional history exists RSV Ped < 20 months Aged Out No longe r eligible based on patient's age to complete this topic Care Teams Yardmaster Relationship Specialty Start Date End Date Yesenia Miller MD [address] [place] [id number] PCP - General Family Medicine 12/11/22
== END 2024-08-02 12:54 | disposition home or self-care (01) ==
PROVIDERS: Absent Provider Physician Assistant Medical; PCP Family Medicine; Visit Provider Physician Assistant Medical
DX: M47.27 Other spondylosis with radiculopathy, lumbosacral region (principal); G47.01 Insomnia due to medical condition; G57.93 Unspecified mononeuropathy of bilateral lower limbs; R29.2 Abnormal reflex; M54.50 Low back pain, unspecified; G89.29 Other chronic pain
CPT/HCPCS: 99214

== ENCOUNTER → 2024-08-02 11:38 | Outpatient (BNVA) | payer MEDICAID, SELFPAY | PROVIDERS: Absent Provider Physician Assistant Medical; PCP Family Medicine; Visit Provider Physician Assistant Medical | DX: M47.27 Other spondylosis with radiculopathy, lumbosacral region (principal); M54.50 Low back pain, unspecified; G47.01 Insomnia due to medical condition; G57.93 Unspecified mononeuropathy of bilateral lower limbs; R29.2 Abnormal reflex; G89.29 Other chronic pain | CPT/HCPCS: 99212 ==

== ENCOUNTER 2024-08-26 14:54 | Outpatient (AMB) | payer MEDICARE, MEDICAID, SELFPAY ==
[2024-08-26 15:04] VITALS: BP 111/63; PULSE 58; BMI 27.5
--- NOTE | 2024-08-26 15:04 | A.OFFVIS_ITS ---
Vital Signs 08/26/24 15:04 Height 5 ft 1 in Weight 145 lb 6 oz BMI 27.5 BP 111/63 Blood Pressure Location Lt brachial Position Sitting Pulse 58 Pulse Source Pulse Oximeter Intake Visit Reasons: spondylosis with radiculopathy, lumbosacral region Intake Note: Pain today 08/08 Inventory Control Assistant Required: Yes Inventory Control Assistant Language: Yoruba Inventory Control Assistant Name: Daughter Accompanied by: Daughter Allergies No Known Allergies Allergy (Verified 08/02/24 11:43) HPI Comments Details: The patient is a 59-year-old female presenting with chronic lower back pain, initially arising after chemotherapy for endometrial cancer in 2019. Radiation therapy followed the surgery, and since then, lower back pain has persisted and worsened over the past several months. This pain is described as dull, aching, and stabbing located in the lower back, without radiation to the legs. Prolonged sitting or standing exacerbates the pain, while ambulation provides some relief. Additionally, she has experienced right knee pain, secondary to which she received cortisone injections yielding relief. Previous attempts at managing her symptoms have included ibuprofen, gabapentin, along with physical therapy, none of which have provided significant benefits recently. The pain particularly affects transitions between positions and contributes to sleep disturbances. - Onset: Following chemotherapy in 2019 - Quality & Character: Dull, aching, stabbing - Primary Location: Lower back - Radiation: None (confined to back) - Aggravating Factors: Prolonged sitting, standing, and unilateral standing activities such as cooking or tasks requiring static posture - Relieving Factors: Movement, walking - Impact: Affects activities such as standing from sitting, causes discomfort during prolonged static activities - Affect: Pain impacts sleep and daily activities; mood not explicitly discussed - Analgesia: Current medications include ibuprofen, gabapentin (inconsistent relief). Pain relief from cortisone injections noted for knee. - Adverse Effects: Struggle with cyclobenzaprine adherence, causing sleep issues, likely due to sedative effects. - Activities of Daily Living: Pain interferes with static activities like standing and cooking, affecting functionality; goal for improved sleep and activity comfort. - Aberrant Drug-Related Behaviors: None reported [facility] Surgical History History of removal of tunneled central venous catheter (CVC) with port Family History Family/Other Alzheimer disease Social History Alcohol intake: never Patient Tobacco Use Status: Former Tobacco user Review of Systems Const Details: - Musculoskeletal: Reports back pain increasing in severity - Neurological: Denies radiating pain down the legs; reports numbness and tingling in feet post-chemotherapy - Gastrointestinal: No systems reported - Genitourinary: No systems reported - Cardiovascular: No systems reported - Respiratory: No systems reported - Integumentary: No systems reported - Psychiatric: Reports difficulties with sleep due to pain Physical Exam Vital Signs: Last Vital Signs Pulse 58 08/26/24 15:04 BP 111/63 08/26/24 15:04 BMI result Body Mass Index 27.5 General: awake, alert, oriented. Answers questions appropriately. Fully engaged in examination. Skin: warm, dry, intact HEENT: Normocephalic. Hearing intact. Cardiac: External chest normal in appearance. Respiratory: No cough, audible wheezing or stridor. Abdomen: without gross distension. MS: No obvious swelling or deformities. Able to stand on bilateral tiptoes and bilateral heels.? Able to transition from sit to stand unassisted. Ambulates with bilaterally normal heel strike and toe off SLR negative bilaterally Increased pain with forward flexion, no pain with extension Nontender over bilateral PSIS Tenderness over midline lumbar vertebrae and lumbar paraspinal muscles Facet loading positive bilaterally Bilateral lower extremity strength 5/5 Neurological: Oriented to person, place, time and situation. Thought process intact. No gait abnormalities appreciated. Psychiatric: Appropriate mood and affect. Good judgment and insight. Results Reviewed Results Reviewed: 08/07/22 FINDINGS: There is grade 1 retrolisthesis of L3 on L4 with alignment otherwise preserved. The vertebral body heights are preserved. There is moderate disc height loss at L1-L2, L2-L3, and L3-L4. Edematous endplate changes are noted at L3-L4 and to lesser extent L4-L5. The distal spinal cord appears normal. The conus medullaris terminates normally at the L1-L2 level. A small filar lipoma is noted. The extraspinal soft tissues are within normal limits. SPINAL LEVELS: L1-L2: Shallow left subarticular protrusion. No spinal canal or neural foraminal stenosis. L2-L3: Mild disc bulging. No spinal canal or neural foraminal stenosis. L3-L4: Shallow left subarticular protrusion with moderate facet arthropathy. Mild spinal canal stenosis and left subarticular stenosis. Left foraminal protrusion resulting in severe left neural foraminal stenosis. Mild to moderate right neural foraminal stenosis. L4-L5: Disc bulging with moderate facet arthropathy. Right foraminal protrusion resulting in moderate to severe right neural foraminal stenosis. No spinal canal stenosis. L5-S1: Disc bulging with moderate facet arthropathy. No spinal canal or neural foraminal stenosis. MR/MR lumbar spine wo con IMPRESSION: 1. Multilevel degenerative spondylosis without significant narrowing of the spinal canal. 2. At L3-L4 there is left foraminal protrusion resulting in severe left neural foraminal stenosis. Mild to moderate right neural foraminal stenosis. 3. At L4-L5 there is right foraminal protrusion resulting in moderate to severe right neural foraminal stenosis. Assessment & Plan Assessment & Plan (1) Lumbar spondylolysis: Code(s): M43.06 - Spondylolysis, lumbar region Category: Medical (2) Chronic back pain: Code(s): M54.9 - Dorsalgia, unspecified; G89.29 - Other chronic pain Category: Medical (3) Sleep disturbance: Code(s): G47.9 - Sleep disorder, unspecified Category: Medical Plan The chronic lower back pain treatment centered around diagnosing facet joint involvement through diagnostic numbing injections, post which appropriate interventions like Sprint nerve stimulation or RFA would be decided. Cyclobenzaprine use at bedtime is suggested to aid sleep without daytime sedation. Nerve stimulation offers a conservative, feedback-based option and was weighted against ablation for permanent nerve impact. Insurance will handle procedure confirmations and pharmacy coordination for medication changes, aligning with overall management goals addressing patient's pain and functional limitations. Patient has exhausted greater than 6 weeks conservative therapy including Tylenol, NSAIDs, prescription medications, physical therapy. I discussed the likely degenerative etiology of the patient's back pain. Proposed was a diagnostic injection approach to confirm this. I emphasized minimizing steroid use due to long-term risks like osteoporosis, opting for a diagnostic approach first. Further discussed were temporary nerve stimulation and radiofrequency ablation. Steps for cyclobenzaprine integration into her daily regimen to assist her sleep and pain management were clarified. The patient consented to the proposed approach, understanding the procedures, risks, and benefits fully. - Cyclobenzaprine at bedtime - Await scheduling for fluoroscopy guided bilateral diagnostic L3-L4 DR L5 medial branch blocks after insurance approval. - Maintain a pain diary following the injection to monitor relief and share during follow-up - Engage in activities that may provoke pain following the injection to establish efficacy - Reach out immediately if new symptoms arise or current symptoms worsen - For further questions, call our office or return for a follow-up appointment as discussed Patient was informed and verbally consented to the use of an ambient scribe for clinic note documentation during this visit. Medications: New cyclobenzaprine may cause drowsiness, no driving while taking this medication 5 mg PO BEDTIME PRN 30 tabs 3RF muscle spasm Coding Level of Care Code New Pt Level 4 (07170) Complex EM visit Add On G2211 Diagnoses Lumbar spondylolysis M43.06 Chronic back pain M54.9; G89.29 Sleep disturbance G47.9
== END 2024-08-26 15:39 | disposition home or self-care (01) ==
LOC: HO.PMC 14:54
PROVIDERS: PCP Family Medicine; Visit Provider Registered Nurse Emergency
DX: M43.06 Spondylolysis, lumbar region (principal); M54.9 Dorsalgia, unspecified; G89.29 Other chronic pain; G47.9 Sleep disorder, unspecified
CPT/HCPCS: 99204; G2211

== ENCOUNTER → 2024-08-26 14:54 | Outpatient (BNVA) | payer MEDICARE, MEDICAID, SELFPAY | PROVIDERS: PCP Family Medicine; Visit Provider Registered Nurse Emergency | DX: M43.06 Spondylolysis, lumbar region (principal); M54.9 Dorsalgia, unspecified; G47.9 Sleep disorder, unspecified; G89.29 Other chronic pain | CPT/HCPCS: 99202 ==

== ENCOUNTER 2024-10-25 06:56 | Outpatient (REF) | payer MEDICARE, MEDICAID, SELFPAY ==
--- NOTE | ~2024-10-25 | FL_ITS ---
EXAMINATION: FL GUIDANCE ONLY HISTORY: M43.06 - Spondylolysis, lumbar region COMPARISON: None available. TECHNIQUE: Fluoroscopy time: 0.5 minutes. Cumulative Dose: 4.82 mGy. DAP: 0.0776 mGym2 Images: 4. FINDINGS: Multiple fluoroscopic spot films of the lumbar spine in the AP projection demonstrate needles and contrast material in the regions of the bilateral L3-4, L4-5, and L5-S1 facet joints. FL/FL guidance in treatment room IMPRESSION: Fluoroscopy during procedure. Please see procedure report for additional information. Electronically signed by: Dariel Hurd MD 10/25/2024 03:42 PM EDT
--- OUTSIDE RECORDS SUMMARY | 2024-10-25 06:59 | XMS_ITS | Patient Health Record ---
Author Organization [facility] Address [address] [place] [address] Care Team Providers Care Bar Assistant Name Role Phone CLEMENTE TORRES Unavailable [phone] Reason For Referral No Information Social History [...] W/U Status Risk Notes Problem Postmenopausal bleeding (58118995) Postmenopausal bleeding (N95.0) Active confirmed Problem Malignant neoplasm of endometrium (C54.1) Active confirmed Problem Abnormal uterine bleeding ([id number]) Abnormal uterine and vaginal bleeding, unspecified (N93.9) Active confirmed Plan Of Treatment Pending Test Test Name Order Date Urinalysis 02/23/2020 ULTRASOUND: PELVIC W/TRANSVAGINAL 2018 MM Digital Screening Mammogram 3D 2019 Insurance Providers Payer Name Payer Address Payer Phone Subscriber Number Group Number Insured Name Patient Relationship to Insured Coverage Start Date Coverage End Date [employer] [place] [address] [place] [address] [phone] [id number] SAMUEL TERESA Self - patient is the insured Medical (General) History Surgical History Surgery Date(Month/Year) oral surgery 08/2018 Hospitalization History Reason Date(Month/Year) childbirth
== END 2024-10-25 06:57 | disposition home or self-care (01) ==
LOC: CF 06:56
PROVIDERS: Visit Provider Anesthesiology
DX: M47.816 Spondylosis without myelopathy or radiculopathy, lumbar region (principal); M43.06 Spondylolysis, lumbar region
CPT/HCPCS: 64493; 64494; J2003; J2795; Q9967

== ENCOUNTER 2024-10-25 13:27 | Outpatient (AMB) | payer MEDICARE, MEDICAID, SELFPAY ==
--- NOTE | 2024-10-25 13:39 | MHC.OFFVIS ---
Vital Signs 10/25/24 13:40 10/25/24 14:32 Weight 145 lb BP 108/73 121/69 Blood Pressure Location Lt brachial Lt brachial Position Sitting Sitting Pulse 70 53 Pulse Source Pulse Oximeter Pulse Oximeter Pulse Oximetry (%) 98 98 Oxygen Delivery Method Room Air Room Air Intake Visit Reasons: BILATERAL DIAGNOSTIC L3, L4, DRL5 MBB Contemporary Or Modern Dancer Required: Yes Contemporary Or Modern Dancer Language: Cantonese Macanese Contemporary Or Modern Dancer Services: Contemporary Or Modern Dancer Present Contemporary Or Modern Dancer Name: Kenia/daughter Allergies No Known Allergies Allergy (Verified 10/25/24 13:43) [facility] Surgical History History of removal of tunneled central venous catheter (CVC) with port Family History Family/Other Alzheimer disease Social History Alcohol intake: never Patient Tobacco Use Status: Former Tobacco user Physical Exam Vital Signs: Last Vital Signs Pulse 53 10/25/24 14:32 BP 121/69 10/25/24 14:32 Pulse Ox 98 10/25/24 14:32 Oxygen Delivery Method Room Air 10/25/24 14:32 Assessment & Plan Assessment & Plan (1) Lumbar spondylolysis: Code(s): M43.06 - Spondylolysis, lumbar region Category: Medical Plan Diagnostic medial branch block L3,L4 dorsal ramus L5 bilateral.? ? ?Informed consent was explained to the patient. All questions were explained and? answered.? The patient was taken inside the operating room where she was positioned prone on the operating table. Time-out was performed delineating correct site, side, the nature of the procedure, patient's allergy, . All operating room staff was participating in OR time-out procedure. ? ? The lower back was prepped with ChloraPrep and draped with sterile towels.? C-arm was brought over the operating field and sq picture of L4-, L5 vertebra and S1 AREA were delineated on the screen.? Point of interest were delineated as confluence of superior articular process of L4 and L5 vertebra bilaterally with corresponding transverse processes as well as confluence of the sacral alae bilaterally with superior articular process of S1.? The projection of the point of interest to the skin were injected with the small amount of local anesthetic lidocaine 2% mixed with ropivacaine 0.5% 1-1 approcimately 1 cc.? After that 22 gauge 3.5 inch spinal needle was driven sequentially to the points of interest in tunnel vision fashion. After needles gently contacted the bone at the point of interests the needle was injected with small amount of the contrast.? The injection of the contrast did not demonstrate any intravascular or intrathecal spread of the contrast.? After that injection of the? ropivacaine 0.5%-1cc was performed at each needle location. ?after that the needles were removed and Bandaids were applied. ? Upon completion of the injections? needle was? removed and sterile Band-Aids were applied.? The patient tolerated procedure very well. Orders: Orders FL guidance in treatment room Today M43.06 - Spondylolysis, lumbar region Coding Level of Care Code Procedure Only Diagnoses Lumbar spondylolysis M43.06
[2024-10-25 13:40] VITALS: BP 108/73; PULSE 70; O2SAT 98
[2024-10-25 14:32] VITALS: BP 121/69; PULSE 53; O2SAT 98
== END 2024-10-25 14:39 | disposition home or self-care (01) ==
LOC: HO.PMCPRC 13:27
PROVIDERS: PCP Family Medicine; Visit Provider Anesthesiology
DX: M47.816 Spondylosis without myelopathy or radiculopathy, lumbar region (principal)
CPT/HCPCS: 64493; 64494

== ENCOUNTER 2024-10-28 13:06 | Outpatient (AMB) | payer MEDICARE, MEDICAID, SELFPAY ==
--- NOTE | 2024-10-28 13:11 | A.OFFVIS_ITS ---
Vital Signs 10/28/24 13:14 Height 5 ft 1 in Weight 145 lb BMI 27.4 BP 112/69 Blood Pressure Location Lt brachial Position Sitting Pulse 60 Pulse Source Pulse Oximeter Pulse Oximetry (%) 100 Oxygen Delivery Method Room Air Intake Visit Reasons: BILATERAL DIAGNOSTIC L3, L4, DRL5 MBB Intake Note: Pain today 3/10 Natural Resources Professor Required: Yes Natural Resources Professor Language: Mandarin Greenlandic Accompanied by: Daughter Allergies No Known Allergies Allergy (Verified 10/28/24 13:15) HPI Comments Details: The patient is a 59-year-old female presenting for follow-up 3 days status post bilateral diagnostic L3-L4 DR L5 medial branch blocks. She has a history of chronic back pain characterized by deep, aching sensations, predominantly affecting a single side of her back. Following the recent procedure intended to aid in diagnosing joint-related pain, she has experienced a bilateral increase in pain, restricting her ability to remain upright for prolonged periods. Before the injection, her back pain was manageable, typically not interfering with daily activities. The current exacerbation is potentially linked to procedural aspects and the subsequent positional discomfort. Pain today is rated as a 3/10. She states the pain does not interfere with her activities of daily living. The patient continues to undertake pain management via cyclobenzaprine, assisting nocturnally, and has previously completed a non-beneficial physical t herapy course. While considering neurocritical care physician as an adjunctive option, she is hesitant about repeating invasive steroid injections given the variable pain relief previously experienced. The detailed assessment of the worsening pain context, potentially arising from degenerative changes or arthritis, underscores the need for revisiting diagnostic and therapeutic approaches to accommodate her functional limitations and pain persistence. - Pain onset post-procedural intervention with a diagnostic injection. - Pain character: deep, aching, previously one-sided, now bilateral after the injection. - Location: Bilateral lower back, radiating to lateral aspects. - Aggravating factors: standing for more than 30 minutes to an hour increases pain severity. - Alleviating factors: Cyclobenzaprine provides pain relief at night, though routine use is limited to nighttime only. - Interference: Significant reduction in the duration patient can stand comfortably, affecting daily activities. - Affect: Increased discomfort and bilateral pain post-procedure impact patient's overall well-being. - Analgesia: Limited to cyclobenzaprine at night, initially trialed physical therapy yielded no significant improvements without additional analgesics. - Adverse Effects: No adverse effects from current analgesic regimen reported. Cyclobenzaprine does induce sleepiness, necessitating nighttime dosing. - Activities of Daily Living: Pain notably affects ability to stand for extended periods, interfering with routine activities. - Aberrant Drug Related Behaviors: No indication of medication misuse, adheres to prescribed dosing schedule. [facility] Surgical History History of removal of tunneled central venous catheter (CVC) with port Family History Family/Other Alzheimer disease Social History Alcohol intake: never Patient Tobacco Use Status: Former Tobacco user Review of Systems Const Details: - Musculoskeletal: Reports increased bilateral back pain, worsened post- procedure. - General: Denies recent fever or systemic illness symptoms post-procedure. - Neurological: Denies new onset of weakness, numbness, or tingling. Physical Exam Vital Signs: Last Vital Signs Pulse 60 10/28/24 13:14 BP 112/69 10/28/24 13:14 Pulse Ox 100 10/28/24 13:14 Oxygen Delivery Method Room Air 10/28/24 13:14 BMI result Body Mass Index 27.4 General: awake, alert, oriented. Answers questions appropriately. Fully engaged in examination. Skin: warm, dry, intact HEENT: Normocephalic. Hearing intact. Cardiac: External chest normal in appearance. Respiratory: No cough, audible wheezing or stridor. Abdomen: without gross distension. MS: No obvious swelling or deformities. Able to transition from sit to stand unassisted. Ambulates with bilaterally normal heel strike and toe off Neurological: Oriented to person, place, time and situation. Thought process intact. No gait abnormalities appreciated. Psychiatric: Appropriate mood and affect. Good judgment and insight. Results Reviewed Results Reviewed: 08/07/22 FINDINGS: There is grade 1 retrolisthesis of L3 on L4 with alignment otherwise preserved. The vertebral body heights are preserved. There is moderate disc height loss at L1-L2, L2-L3, and L3-L4. Edematous endplate changes are noted at L3-L4 and to lesser extent L4-L5. The distal spinal cord appears normal. The conus medullaris terminates normally at the L1-L2 level. A small filar lipoma is noted. The extraspinal soft tissues are within normal limits. SPINAL LEVELS: L1-L2: Shallow left subarticular protrusion. No spinal canal or neural foraminal stenosis. L2-L3: Mild disc bulging. No spinal canal or neural foraminal stenosis. L3-L4: Shallow left subarticular protrusion with moderate facet arthropathy. Mild spinal canal stenosis and left subarticular stenosis. Left foraminal protrusion resulting in severe left neural foraminal stenosis. Mild to moderate right neural foraminal stenosis. L4-L5: Disc bulging with moderate facet arthropathy. Right foraminal protrusion resulting in moderate to severe right neural foraminal stenosis. No spinal canal stenosis. L5-S1: Disc bulging with moderate facet arthropathy. No spinal canal or neural foraminal stenosis. MR/MR lumbar spine wo con IMPRESSION: 1. Multilevel degenerative spondylosis without significant narrowing of the spinal canal. 2. At L3-L4 there is left foraminal protrusion resulting in severe left neural foraminal stenosis. Mild to moderate right neural foraminal stenosis. 3. At L4-L5 there is right foraminal protrusion resulting in moderate to severe right neural foraminal stenosis. Assessment & Plan Assessment & Plan (1) Lumbar spondylolysis: Code(s): M43.06 - Spondylolysis, lumbar region Category: Medical (2) Chronic back pain: Code(s): M54.9 - Dorsalgia, unspecified; G89.29 - Other chronic pain Category: Medical (3) Sleep disturbance: Code(s): G47.9 - Sleep disorder, unspecified Category: Medical Plan The current management plan involves continuing cyclobenzaprine for nocturnal pain relief and utilizing pxea-sdi-vxcnwpu medications such as Tylenol or Aleve as symptomatic treatment. Ice, Icy Hot, or similar topical treatments are advised to mitigate procedural discomfort. Exploration of chiropractic interventions is a consideration pending insurance confirmation and provider selection. Should her condition not improve, revisiting the appropriateness of steroid injections or other interventional measures may be considered at a later date. During the consultation, I discussed with the patient the increase in back pain post- diagnostic injection, highlighting that the procedure was diagnostic in nature and meant to assess joint-related pain contributions. The absence of relief implies alternative etiologies. We deliberated the use of nxvl-sez-lixyule analgesics and topical treatments to manage procedural discomfort, alongside nocturnal use of her muscle relaxant. Exploration of neurocritical care physician was suggested, with an emphasis on ensuring reputable provider and insurance coverage. Should non-invasive measures fail to improve symptoms, we will consider further interventions upon reassessment. Patient requesting referral to chiropractor. Discuss this with her daughter during the visit, they will do some research and call the office with provider of choice so referral can be placed. Patient was informed and verbally consented to the use of an ambient scribe for clinic note documentation during this visit. Medications: Changed From cyclobenzaprine may cause drowsiness, no driving while taking this medication 5 mg PO BEDTIME PRN 30 tabs 3RF muscle spasm To cyclobenzaprine may cause drowsiness, no driving while taking this medication 5 mg PO BEDTIME PRN 90 tabs 1RF muscle spasm 90 days Patient Instructions: - Continue taking cyclobenzaprine nightly for pain relief. - Use Tylenol or Aleve as needed for additional pain management. - Apply ice packs or topical treatments like Icy Hot for pain relief. - Consult with insurance about potential neurocritical care physician benefits. - Follow up if pain persists or worsens to reassess treatment options. Coding Level of Care Code Est Pt Level 3 (39414) Complex EM visit Add On G2211 Diagnoses Lumbar spondylolysis M43.06 Chronic back pain M54.9; G89.29 Sleep disturbance G47.9
[2024-10-28 13:14] VITALS: BP 112/69; PULSE 60; O2SAT 100; BMI 27.4
--- OUTSIDE RECORDS SUMMARY | 2024-10-28 13:15 | XMS_ITS | Patient Health Record ---
Author Organization [facility] Address [address] [place] [address] Care Team Providers Care Frame Gate Mortiser Operator Name Role Phone CLEMENTE TORRES Unavailable [phone] Reason For Referral No Information Social History [...] W/U Status Risk Notes Problem Postmenopausal bleeding ([id number]) Postmenopausal bleeding (N95.0) Active confirmed Problem Malignant neoplasm of corpus uteri, excluding isthmus ([id number]) Malignant neoplasm of endometrium (C54.1) Active confirmed Problem Abnormal uterine and vaginal bleeding, unspecified (N93.9) Active confirmed Plan Of Treatment Pending Test Test Name Order Date Urinalysis 02/23/2020 ULTRASOUND: PELVIC W/TRANSVAGINAL 2018 MM Digital Screening Mammogram 3D 2019 Insurance Providers Payer Name Payer Address Payer Phone Subscriber Number Group Number Insured Name Patient Relationship to Insured Coverage Start Date Coverage End Date [employer] [place] [address] [place] [address] [id number] TERESA BAKER Self - patient is the insured Medical (General) History Surgical History Surgery Date(Month/Year) oral surgery 08/2018 Hospitalization History Reason Date(Month/Year) childbirth
== END 2024-10-28 13:32 | disposition home or self-care (01) ==
LOC: HO.PMC 13:07
PROVIDERS: PCP Family Medicine; Visit Provider Registered Nurse Emergency
DX: M43.06 Spondylolysis, lumbar region (principal); M54.9 Dorsalgia, unspecified; G89.29 Other chronic pain; G47.9 Sleep disorder, unspecified
CPT/HCPCS: 99213; G2211

== ENCOUNTER → 2024-10-28 13:06 | Outpatient (BNVA) | payer MEDICARE, MEDICAID, SELFPAY | PROVIDERS: PCP Family Medicine; Visit Provider Registered Nurse Emergency | DX: M43.06 Spondylolysis, lumbar region (principal); M54.9 Dorsalgia, unspecified; G47.9 Sleep disorder, unspecified; G89.29 Other chronic pain | CPT/HCPCS: 99212 ==

== ENCOUNTER 2024-11-18 11:42 | Outpatient (AMB) | payer MEDICARE, MEDICAID, SELFPAY ==
[2024-11-18 11:44] VITALS: PULSE 59; O2SAT 97; BMI 27.7
--- NOTE | 2024-11-18 11:44 | A.OFFVIS_ITS ---
Vital Signs 11/18/24 11:44 Height 5 ft 1 in Weight 146 lb 8 oz BMI 27.7 Pulse 59 Pulse Source Pulse Oximeter Pulse Oximetry (%) 97 Oxygen Delivery Method Room Air Intake Visit Reasons: Follow up Intake Note: Patient presents follow up Insomnia medication. Pain karina in chart. Patient states needing refill on gabapentin 300mg. Ins requires 90days supply. Medication working and helping a alot. [employer] Required: Yes [employer] Services: [employer] Offered & Declined [employer] Name: daughter Information Interpreted: non-clinical & clinical Accompanied by: Daughter Allergies No Known Allergies Allergy (Verified 11/18/24 11:47) HPI Comments Details: 58 y/o female patient presents for follow up of insomnia. Patient's daughter interprets in Romansh [employer]. Apr 2022, HST c/w AHI was <1 and she did not show evidence of BROWN. MRI head and brain pending She has a h/o stage 4 endometrial cancer and complete hysterectomy in 2019 at [facility], she began chemo-radiation for 6 weeks in Spring 2020. She can sleep 6 hours a night, however must continue her medication routine with gabapentin trazadone, and cyclobenzaprine for spondolysis, stenosis, and retrolisthesis. She snores loudly, and grinds her teeth at night has 2-3 bathroom breaks on vibegron and Pelvic floor exercises for Urinary incontinence. Walks daily and exercises as tolerable. She has continued bilateral tingling, numbness in the feet and R. knee pain which usually disrupt her sleep. Continues to have back (L1-4)and knee pain which wakes her up at night radiating down her legs and difficulty standing. She uses heating pads for knee pain, and back pain, cortisone shots with pain management. She continues to have bilateral feet numbness, tingling and difficulty putting her shoes on, absolutely unable to put her feet into the flip/flops without looking, has to visually see her shoes, she can not feel her toes, and denies radiation of the sensation. She also has difficulty going down the stairs. Memory is okay, she says she forgets normal things for example going into the room and not remembering why she is there. Diet is stable. Denies word recall, attention or language deficits. She has a +FH for alzheimers dementia with maternal grand-mother. PSG evaluate sleep difficulties. MRI to evaluate cerebellum - for propioception finger to nose test not normal, and gait off balance on tandem exam, no tremors noted. [facility] Medical History (Updated 11/18/24 @ 13:15 by Elvira Haddad PA-C) Insomnia Surgical History (Updated 11/18/24 @ 12:48 by Elvira Haddad PA-C) S/P MAGGIE-BSO H/O colonoscopy History of removal of tunneled central venous catheter (CVC) with port Family History Family/Other Alzheimer disease Social History Alcohol intake: never Patient Tobacco Use Status: Former Tobacco user Review of Systems Const Reports weakness ENT Reports Normal hearing present Card Reports palpitations Musc Reports numbness and Reports tingling Neuro Reports Normal hearing present, Reports numbness, Reports Sensory deficit (Neuro), Reports tingling, Reports paresthesias and Reports weakness Endo Reports palpitations Physical Exam Vital Signs: Last Vital Signs Pulse 59 11/18/24 11:44 Pulse Ox 97 11/18/24 11:44 Oxygen Delivery Method Room Air 11/18/24 11:44 BMI result Body Mass Index 27.7 Const General: cooperative, comfortable and no acute distress Nutritional Appearance: average body habitus Orientation/consciousness: patient oriented x3 Limitations: language barrier (Romansh speaking only) Neck Neck: Yes full ROM and Yes supple Resp Effort & Inspection: normal respiratory effort and able to speak in complete sentences Neuro Other: Continues to have back (L1-4)and knee pain which wakes her up at night radiating down her legs and difficulty standing. Bilateral feet neuropathy and sways on romberg. Balance and gait off listing on tandem exam. General: patient oriented x3 and gait normal Cranial nerves: Yes Bilaterally intact EOM present, Yes Normal facial strength present, Yes Midline tongue present, Yes Normal hearing present, Yes Ability to bilaterally rotate head present and Yes Ability to bilaterally elevate shoulders present Cognition (Neuro): normal cognition Gait exam (Neuro): Normal gait present Motor exam (neuro): Abnormal motor strength present and Pronator motor function present Sensory Exam: Sensory deficit (Neuro) Deep tendon reflexes (DTR's): Right triceps reflex intensity grade: 2+, Left triceps reflex intensity grade: 2+, Rt Biceps (C5, C6): 2+, Left biceps reflex intensity grade: 2+, Right brachioradialis reflex intensity grade: 2+, Left brachioradialis reflex intensity grade: 2+, Right patellar reflex intensity grade: 3+, Left patellar reflex intensity grade: 3+, Right ankle reflex intensity grade: 3+ and Left ankle reflex intensity grade: 3+ Coordination: [id number] test normal (overshoots ) Psych Appearance: grossly normal Mental Status: mental status grossly normal Speech and movement: Normal speech and movement present Affect: normal affect Attitude: cooperative Results Reviewed Results Reviewed: MR/MR lumbar spine wo con IMPRESSION: 1. Multilevel degenerative spondylosis without significant narrowing of the spinal canal. 2. At L3-L4 there is left foraminal protrusion resulting in severe left neural foraminal stenosis. Mild to moderate right neural foraminal stenosis. 3. At L4-L5 there is right foraminal protrusion resulting in moderate to severe right neural foraminal stenosis. 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 with radiculopathy: Code(s): M47.27 - Other spondylosis with radiculopathy, lumbosacral region Category: Medical (3) Neuropathy involving both lower extremities: Comment: L2-4 radiating pain degenerative arthritis - chemo therapy 2020 Code(s): G57.93 - Unspecified mononeuropathy of bilateral lower limbs Category: Medical (4) Abnormal reflexes of lower extremity: Code(s): R29.2 - Abnormal reflex Category: Medical (5) Back pain: Code(s): M54.9 - Dorsalgia, unspecified Category: Medical Qualifiers: Back pain location: low back pain Chronicity: chronic Back pain laterality: bilateral Sciatica presence: unspecified whether sciatica present Qualified Code(s): M54.50 - Low back pain, unspecified; G89.29 - Other chronic pain Plan PSG Insomnia with sleep disturbances and fatigue, multiple awakenings due to pain. Continue to see pain management for Corticosteroid / Hyaluronic injections as needed, spondylosis, retrolisthesis L1-2-3-4 and difficulty standing for >30min. Continue cyclobenzaprine. Bilateral Neuropathic pain and radiculopathy Continue to take gabapentin to 400 mg po at bedtime neuropathy Insomnia continue Trazadone 150mg po at bedtime. Continue to take Magnesium Oxide 400mg po at bedtime for low back pain. MRI abnormal sensation bilaterally on feet. Finger to nose coordination is abnormal, gait and balance is off. F/U in 3 months Orders: Orders MR head/brain wo/w con Today G89.29 - Other chronic pain, H81.90 - Unspecified disorder of vestibular function, unspecified ear, M54.50 - Low back pain, unspecified RT PSG in-lab sleep study Today G47.01 - Insomnia due to medical condition, G47.9 - Sleep disorder, unspecified, R53.83 - Other fatigue Medications: Changed From gabapentin 300 mg PO BEDTIME 90 days 90 caps 2RF Neuropathy MDD 300mg G57.93 - Unspecified mononeuropathy of bilateral lower limbs To gabapentin take 300mg po daily at bedtime for neuropathy 300 mg PO BEDTIME 90 caps 2RF Neuropathy 90 days MDD 300mg G57.93 - Unspecified mononeuropathy of bilateral lower limbs Patient Instructions: Sleep Hygiene provided: set a scheduled bedtime and wake time to help regulate the circadian rhythm and balance the release of pituitary hormones. Sleep in a dark room, temperatures below 68 degrees, and no devices n bed. Limit caffeinated products 6 hours prior to bed, and limit fluids 2-4 hours prior to bed. Gentle night yoga, diffusing essential oils, and playing soft music can be relaxing. Coding Level of Care Code Est Pt Level 4 (65687) Diagnoses Insomnia due to medical condition G47.01 Insomnia type: due to medical condition Spondylosis of lumbosacral spine at 2 levels with radiculopathy M47.27 Neuropathy involving both lower extremities G57.93 Abnormal reflexes of lower extremity R29.2 Chronic bilateral low back pain, unspecified whether sciatica present M54.50; G89.29 Back pain location: low back pain Chronicity: chronic Back pain laterality: bilateral Sciatica presence: unspecified whether sciatica present Time Spent (min) 30
--- OUTSIDE RECORDS SUMMARY | 2024-11-18 12:05 | XMS_ITS | Patient Health Record ---
Author Organization [facility] Address [address] [place] [address] Care Team Providers Care Internal Control Manager Name Role Phone CLEMENTE TORRES Unavailable [phone] Reason For Referral No Information Social History [...] W/U Status Risk Notes Problem Postmenopausal bleeding (29350943) Postmenopausal bleeding (N95.0) Active confirmed Problem Malignant neoplasm of corpus uteri, excluding isthmus (235629882) Malignant neoplasm of endometrium (C54.1) Active confirmed Problem Abnormal uterine bleeding ([id number]) Abnormal uterine and vaginal bleeding, unspecified (N93.9) Active confirmed Plan Of Treatment Pending Test Test Name Order Date Urinalysis 02/23/2020 ULTRASOUND: PELVIC W/TRANSVAGINAL 2018 MM Digital Screening Mammogram 3D 2019 Insurance Providers Payer Name Payer Address Payer Phone Subscriber Number Group Number Insured Name Patient Relationship to Insured Coverage Start Date Coverage End Date [employer] [address] [place] [address] [id number] TERESA BAKER Self - patient is the insured Medical (General) History Surgical History Surgery Date(Month/Year) oral surgery 08/2018 Hospitalization History Reason Date(Month/Year) childbirth
== END 2024-11-18 12:27 | disposition home or self-care (01) ==
LOC: HO.HSMS 11:43
PROVIDERS: PCP Family Medicine; Visit Provider Physician Assistant Medical
DX: G47.01 Insomnia due to medical condition (principal); M47.27 Other spondylosis with radiculopathy, lumbosacral region; G57.93 Unspecified mononeuropathy of bilateral lower limbs; R29.2 Abnormal reflex; M54.50 Low back pain, unspecified; G89.29 Other chronic pain
CPT/HCPCS: 99214

== ENCOUNTER → 2024-11-18 11:42 | Outpatient (BNVA) | payer MEDICARE, MEDICAID, SELFPAY | PROVIDERS: PCP Family Medicine; Visit Provider Physician Assistant Medical | DX: G47.01 Insomnia due to medical condition (principal); G57.93 Unspecified mononeuropathy of bilateral lower limbs; M47.27 Other spondylosis with radiculopathy, lumbosacral region; R29.2 Abnormal reflex; M54.50 Low back pain, unspecified; G89.29 Other chronic pain | CPT/HCPCS: 99212 ==

== ENCOUNTER → 2025-04-14 15:48 | Outpatient (BNV) | payer MEDICARE, MEDICAID, SELFPAY | PROVIDERS: Visit Provider Radiology Diagnostic Radiology | DX: I67.1 Cerebral aneurysm, nonruptured (principal) | CPT/HCPCS: 70553 ==

== ENCOUNTER 2025-04-14 15:57 | Outpatient (REF) | payer MEDICARE, MEDICAID, SELFPAY ==
--- NOTE | ~2025-04-14 | MR_ITS ---
EXAMINATION: MR BRAIN IAC PROTOCOL WITHOUT AND WITH CONTRAST CLINICAL INFORMATION: H81.90 COMPARISON: None available. TECHNIQUE: Multiplanar, multisequence MRI of the brain IAC protocol was obtained before and after the intravenous administration of 6.5 mL gadolinium based (Gadavist) without reported immediate complications.. FINDINGS: The cochlear or vestibular components of the 8th cranial nerves demonstrated no signal abnormality or abnormal enhancement. No abnormal enhancement within the cerebellopontine angle cisterns or the brainstem. Right anterior inferior cerebellar artery is type III. Left anterior inferior cerebellar artery is type I. Normal position of the internal jugular bulbs. No restricted diffusion. No acute intracranial hemorrhage, mass effect, midline shift, hydrocephalus or herniation. Bilateral, a few, scattered, nonspecific subcortical and white matter hyperintense T2 FLAIR signal, the most conspicuous in the left frontal lobe. Alaniz-white matter differentiation is normal. Sellar/suprasellar region is normal. Craniocervical junction demonstrates normal position of the cerebellar tonsils. Flow-void signal within the main cerebral vessels is normal. No abnormal enhancement within the intra-axial or the extra-axial compartment of the cranium based upon the axial T1 postcontrast sequence. MR/MR head/brain wo/w con IMPRESSION: No vestibular schwannoma. Right AICA isType III. No acute brain abnormality. No abnormal enhancement. Electronically signed by: Haim Cruz MD 04/17/2025 07:04 AM KIKO
--- OUTSIDE RECORDS SUMMARY | 2025-04-15 00:52 | XMS_ITS | Clinical Summary ---
Author Organization [facility] Address [address] [place] [address] Care Team Providers Care Civil Engineering Teacher Name Role Phone Yesenia Miller MD Primary [...] risk. 3. Carboplatin AUC 6, paclitaxel 175 mg/m every 21 days, started 04/04/2020. Family History [...] 61 12/24/2023 11:41 AM EDT Temperature 36.8 C (98.2 F) 12/24/2023 11:41 AM EDT Respiratory Rate - - Oxygen Saturation 97% [...] Screening (Mammogram) 08/25/2015 COVID-19 Vaccine ( season) 2025 12/20/2021, 04/06/2021, 03/09/2021 Influenza Vaccine (#1) 2025 2, 02/23/2021, 01/24/2020, Additional history exists RSV Ped < 20 months Aged Out No longe r eligible based on patient's age to complete this topic Care Teams Civil Engineering Teacher Relationship Specialty Start Date End Date Yesenia Miller MD [address] [place] [id number] PCP - General Family Medicine 12/11/22
== END 2025-04-14 15:58 | disposition home or self-care (01) ==
LOC: HO.MRI 15:57
PROVIDERS: Visit Provider Physician Assistant Medical
DX: H81.90 Unspecified disorder of vestibular function, unspecified ear (principal); M54.50 Low back pain, unspecified; G89.29 Other chronic pain; H91.90 Unspecified hearing loss, unspecified ear
CPT/HCPCS: 70553; A9585